=== PATIENT | female | born 1965 | race Caucasian/White ===

== ENCOUNTER 2018-12-05 19:20 | Inpatient (IN) | payer MEDICAID, OTHER ==
[~2018-12-05] VITALS: Ht 175.3 cm; Wt 86.1 kg
[2018-12-05] MEDS ORDERED: MIDAZOLAM HCL 5 MG/ML-1ML VIAL IV ONE (19:30)
--- NOTE | 2018-12-05 19:40 | NUR ---
Respiratory note: RECEIVED PT FROM EMS WITH 8.0 ETT SECURED AT 23CM AT THE LIP. CO2 DETECTOR PLACED INLINE WITH AMBU BAG RECEIVED POSITIVE COLOR CHANGE BILATERAL BS HEARD, CHANGED OUT EMS HOLISTER AND PLACED BITE BLOCK HOLISTER SECURED AGAIN AT 23CM AT THE LIP WITH OUT INCIDENT. DR GARCIA AT BEDSIDE. PLACED PT ON VENT V4, VENT CONNECTED TO RED OUTLET AND O2 SOURCE. AMBU BAG AND MASK AT BEDSIDE. BS ARE COURSE T/O, LAVAGE SXD FOR THIN BROWN/YELLOWISH RETURN SPUTUM SAMPLE OBTAINED AND SENT TO LAB. WILL CONTINUE TO MONITOR Q2H VENT CHECKS.
[2018-12-05] MEDS ORDERED: MIDAZOLAM DRIP 50 mg/50mL 50 ML IV ONE (19:46)
[2018-12-05] MEDS ORDERED: SODIUM CHLORIDE 0.9% 1,000 ML IVB STA (19:47)
[2018-12-05] MEDS ORDERED: NOREPINEPHRINE 8 MG/250ML KIT 250 ML IV ONE (19:59)
[2018-12-05] MEDS ORDERED: SODIUM BICARBONATE 8.4 % INJ 50ML VIAL IV ONE (20:00)
[2018-12-05] MEDS ORDERED: methylPREDNISolone SOD SUCC 125 MG/2 ML VL IV ONE (20:00)
[2018-12-05] MEDS ORDERED: ONDANSETRON HCL 4 MG/2 ML VIAL IV ONE (20:00)
[2018-12-05] MEDS ORDERED: SODIUM CHLORIDE 0.9% 1,000 ML IV ONE (20:00)
[2018-12-05] MEDS: NOREPINEPHRINE 8 MG/250ML KIT 250 ML IV SCH (20:06)
[2018-12-05] MEDS: MIDAZOLAM DRIP 50 mg/50mL 50 ML IV SCH (20:07)
--- NOTE | 2018-12-05 20:20 | NUR ---
Respiratory note: ROUTINE VENT CHECK. JUAQUIN CHOW MADE AWARE PT REMAINS TACHYPNEIC, RN COMMUNICATES SEDATION WILL BE INCREASED. SXD VIA ETT FOR SCANT AMOUNT OF THIN BROWN/BALDWIN SECRETIONS. WILL CONTINUE TO MONITOR Q2H VENT CHECKS.
[2018-12-05 20:21] LABS: Eosinophils # (auto) 0.1 uL; Hematocrit 37.9 % (36.0-46.0); Monocytes # (auto) 0.2 uL
[2018-12-05 20:22] LABS: Basophils # (auto) 0.1 uL; Basophils % (auto) 0.9 % (0.0-2.0); Eosinophils % (auto) 1.9 % (0.0-7.0); Hemoglobin 12.3 g/dL (12.2-16.2); Lymphocytes # (auto) 2.6 uL; Lymphocytes % (auto) 48.6 % (10.0-50.0); Mean Corpuscular Hemoglobin 33.4 pg (28.0-32.0); Mean Corpuscular Hgb Conc. 32.5 g/dL (32.0-36.0); Mean Corpuscular Volume 102.9 fL (80.0-100.0); Monocytes % (auto) 4.4 % (0.0-12.0); Neutrophils # (auto) 2.4 uL; Neutrophils % (auto) 44.2 % (37.0-80.0); Nucleated Red Blood Cells % 0.2 %; Platelet Count (auto) 261 10^3/uL (140-450); Red Blood Cells 3.69 10^6/uL (4.0-5.20); Red Cell Distribution Width 13.9 % (11.8-14.3); White Blood Cell 5.4 10^3/uL (4.4-10.8)
[2018-12-05 20:24] LABS: Acetaminophen < 2.0 ug/mL (10-30); Alanine Aminotransferase 111 U/L (13-56); Albumin 3.1 g/dL (3.4-5.0); Anion Gap 21 (5-15); Aspartate Aminotransferase 406 U/L (15-37); Blood Alcohol < 3.0 mg/dL (0-5); Blood Urea Nitrogen 12 mg/dL (7-18); Calcium 8.6 mg/dL (8.5-10.1); Carbon Dioxide 14 mmol/L (21-32); Chloride 100 mmol/L (98-107); GFR African American 33 mL/min; GFR Non-African American 28 mL/min; Glucose 252 mg/dL (74-106); Magnesium 2.4 mg/dL (1.6-2.6); Salicylate < 1.7 mg/dL (2.8-20.0); Sodium 135 mmol/L (136-145)
[2018-12-05 20:27] LABS: Alkaline Phosphatase 261 U/L (45-117); Bilirubin, Total 0.3 mg/dL (0.2-1.0); Total Protein 6.9 g/dL (6.4-8.2)
[2018-12-05 21:00] LABS: Lactic Acid w/Reflex 7.5 mmol/L (0.4-2.0)
[2018-12-05] MEDS ORDERED: ACETAMINOPHEN 650 mg PER 20 mL UD GT ONE (21:30)
[2018-12-05 21:37] LABS: Alcohol, Urine < 3.0 mg/dL (0-5); Amphetamine Screen, Urine NEGATIVE (NEGATIVE); Barbiturate Scree,Urine NEGATIVE (NEGATIVE); Benzodiazephine Screen, Urine POSITIVE (NEGATIVE); Cannabinoid Screen, Urine NEGATIVE (NEGATIVE); Cocaine Screen, Urine NEGATIVE (NEGATIVE); Opiate Scree,Urine POSITIVE (NEGATIVE); Phencyclidine Screen, Urine NEGATIVE (NEGATIVE)
--- NOTE | 2018-12-05 21:38 | NUR ---
Respiratory note: TITRATED FIO2 TO 50% DUE TO ABG RESULTS. JUAQUIN CHOW MADE AWARE OF VENT CHANGE.
[2018-12-05 21:44] LABS: Urine Bacteria NONE SEEN /hpf (None Seen); Urine Blood 2+ /uL (Negative); Urine Mucus FEW (None Seen); Urine Specific Gravity 1.012 (1.001-1.035); Urine WBC 12 /hpf (0 - 5)
[2018-12-05] MEDS ORDERED: LEVOFLOXACIN 500MG 100 ML IV ONE (22:00)
[2018-12-05] MEDS: PROPOFOL 100 ML IV SCH (23:23)
[2018-12-05 23:40] VITALS: BP 138/87
[2018-12-06] VITALS (98 sets, daily range): BP systolic 60–158; BP diastolic 36–93
[2018-12-06] MEDS ORDERED: LORazepam 2MG/ML-1ML VIAL IV PRN ×2 (00:30→01:15)
[2018-12-06] MEDS ORDERED: ONDANSETRON HCL 4 MG/2 ML VIAL IV PRN (00:30)
[2018-12-06] MEDS ORDERED: LISI10TA6 PO (00:46)
[2018-12-06] MEDS ORDERED: METO25TA62 PO (00:46)
[2018-12-06] MEDS ORDERED: LAM100T PO (00:48)
[2018-12-06] MEDS ORDERED: BUPR-40 PO (00:49)
[2018-12-06] MEDS ORDERED: MECL-87 PO (00:51)
[2018-12-06] MEDS ORDERED: HCTZ25T PO (00:52)
[2018-12-06] MEDS ORDERED: ESLI1TAB3 PO (00:53)
[2018-12-06] MEDS ORDERED: metroNIDAZOLE 500MG/100ML 100 ML IV ONE (01:00)
[2018-12-06] MEDS ORDERED: DEXTROSE (50%) 50ML SYRG IV PRN (01:00)
--- NOTE | 2018-12-06 02:03 | NUR ---
Respiratory note: AT BEDSIDE FOR ROUTINE VENT CHECK. NO CHANGES MADE, ABG OBTAINED AT THIS TIME. JUAQUIN SUAZO COMMUNICATED PT WILL TRANSFER TO ICU BED 110 SOON. WILL CONTINUE TO MONITOR Q2H VENT CHECKS.
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
--- NOTE | 2018-12-06 04:13 | NUR ---
Respiratory note: END OF SHIFT VENT CHECK, NO CHANGES DONE WILL HAVE DAY SHIFT CONTINUE PLAN OF CARE.
[2018-12-06 04:19] LABS: Basophils # (auto) 0 uL; Basophils % (auto) 0.2 % (0.0-2.0); Eosinophils # (auto) 0 uL; Hematocrit 35.2 % (36.0-46.0); Hemoglobin 11.9 g/dL (12.2-16.2); Lymphocytes # (auto) 0.3 uL; Lymphocytes % (auto) 1.8 % (10.0-50.0); Mean Corpuscular Hemoglobin 33.4 pg (28.0-32.0); Mean Corpuscular Hgb Conc. 33.7 g/dL (32.0-36.0); Mean Corpuscular Volume 99.2 fL (80.0-100.0); Monocytes # (auto) 0.5 uL; Monocytes % (auto) 3.3 % (0.0-12.0); Neutrophils # (auto) 14.5 uL; Neutrophils % (auto) 94.7 % (37.0-80.0); Nucleated Red Blood Cells % 0.1 %; Platelet Count (auto) 238 10^3/uL (140-450); Red Blood Cells 3.55 10^6/uL (4.0-5.20); Red Cell Distribution Width 13.4 % (11.8-14.3); White Blood Cell 15.3 10^3/uL (4.4-10.8)
[2018-12-06 04:33] LABS: Anion Gap 13 (5-15); BUN/Creatinine Ratio 13.9; Blood Urea Nitrogen 19 mg/dL (7-18); Calcium 7.6 mg/dL (8.5-10.1); Carbon Dioxide 19 mmol/L (21-32); Chloride 108 mmol/L (98-107); GFR African American 51 mL/min; GFR Non-African American 43 mL/min; Glucose 135 mg/dL (74-106); Potassium 3.5 mmol/L (3.5-5.1); Sodium 140 mmol/L (136-145)
[2018-12-06] MEDS: MIDAZOLAM DRIP 50 mg/50mL 50 ML IV SCH ×6 (04:51→21:34)
[2018-12-06 05:09] LABS: Magnesium 1.8 mg/dL (1.6-2.6)
[2018-12-06 05:14] LABS: Bilirubin, Direct 0.1 mg/dL (0-0.2); Bilirubin, Total 0.3 mg/dL (0.2-1.0); Phosphorus 3.2 mg/dL (2.5-4.90); Total Protein 6.3 g/dL (6.4-8.2)
[2018-12-06 05:20] LABS: INR 0.99 (0.9-1.15); Partial Thromboplastin Time 26.5 sec (23.64-32.05)
[2018-12-06] MEDS: IPRATROPIUM BROM 0.5 MG/2.5ML INH SOL NEB SCH ×3 (05:58→18:23)
[2018-12-06] MEDS: ALBUTEROL SULF 2.5 MG/0.5ML(0.5%) NEB SOLN NEB SCH ×3 (05:58→18:23)
[2018-12-06] MEDS ORDERED: metroNIDAZOLE 500MG/100ML 100 ML IV SCH (06:00)
[2018-12-06] MEDS: metroNIDAZOLE 500MG/100ML 100 ML IV SCH ×3 (06:00→22:40)
[2018-12-06] MEDS: ACCU-CHEK COMFORT CURVE STRIP VI SCH ×3 (06:00→18:43)
[2018-12-06] MEDS: InsuLIN REG 1unit/0.01ml Soln (100units/ml) SC SCH ×3 (06:00→18:00)
--- NOTE | 2018-12-06 07:00 | NUR ---
CDIFF FORM SENT
--- NOTE | 2018-12-06 07:30 | NUR ---
REPORT AND CARE ENDORSED TO JUAQUIN BATISTA
--- NOTE | 2018-12-06 07:30 | NUR ---
OPENING NOTE SHIFT REPORT RECEIVED AND ASSUMED CARE OF PT FROM VAUGHN REZA
[2018-12-06] MEDS: PROPOFOL 100 ML IV SCH ×4 (07:34→22:40)
--- NOTE | 2018-12-06 10:00 | NUR ---
RANULFO AT BEDSIDE
--- NOTE | 2018-12-06 10:10 | NUR ---
DR. SAAB AT BEDSIDE ORDERS RECEIVED Addendum: 12/06/18 at 1143 by CHELE BARR RN RN UPDATED RANULFO ON PT STATUS. VERBALIZES UNDERSTANDING OF PLAN. NO FURTHER QUESTIONS OR CONCERNS AT THIS TIME.
[2018-12-06] MEDS: ENOXAPARIN SOD 40 MG/0.4 ML SYRINGE SC SCH (10:39)
[2018-12-06] MEDS: FAMOTIDINE (10MG/ML) 2ML VL IV SCH (10:39)
[2018-12-06] MEDS ORDERED: VANCOMYCIN PER PHARMACY 0 MG IV SCH (10:45)
--- NOTE | 2018-12-06 10:45 | NUR ---
RECEIVED CALL FROM RADIOLOGY RECOMMENDATION TO ADVANCE ET TUBE 4 CM PER CHEST XRAY RESULTS SHOWING ET TUBE 9.[address] SAAB AND RT NOTIFIED
--- NOTE | 2018-12-06 10:55 | NUR ---
RT AT BEDSIDE FOR ET TUBE ADVANCEMENT. ET TUBE NOW 26CM AT LIP
--- NOTE | 2018-12-06 11:10 | NUR ---
HYDROELECTRIC PLANT MAINTAINER AT BEDSIDE
--- NOTE | 2018-12-06 11:26 | NUR ---
WOUND CARE NOTE: Wound care in to see patient per wound care request regarding low Benson score of 11, intubation status and multi skin integrity issue noted present on admission. Bedside nurse took photograph of patient's multiple skin issue upon admission for reference. Patient is 53 y/o female with admitted due to cardiac arrest s/p CPR. Patient is resting in ICU bed in Rm 110. She's intubated, sedated and mechanically ventilated. Patient appears to be in no pain using Alex Richardson Faces Pain Scale. Skin assessment done with the assistance of patient's nurse, JUAQUIN Munroe. Patient noted with multiple scabbed abrasions to Lt knee, tiny scabbed wound to R anterior forehead, 2x2cm well approximated incision to dorsal R wrist which patient's reported from recent cyst removal. Abrasions and incision are clean and dry, asymptomatic, left open to air. Patient also noted with multiple old ecchymosis to Lt upper arm, Lt lateral abdomen, lateral lower back, hip and thigh. Ecchymosis are intact, clean and dry, left open to air. No pressure injury noted. Repositioned patient for comfort facing her Rt. side, redistributed pressure points with wedges and pillows. Patient tolerated well. JUAQUIN Munroe at bedside. RECOMMENDATION: BID/PRN cleaning and application of Barrier cream to sacral/buttocks as preventative per MD order, Dietary consult , frequent turning and repositioning schedule as condition permits, redistribute pressure points with pillows, elevate heels on pillows, continue monitoring by wound care while patient is mechanically ventilated and Benson score is below 18. Addendum: 12/06/18 at 1426 by Divya Motley RN Amended: Links added.
--- NOTE | 2018-12-06 11:46 | NUR ---
NUTRITION CONSULT/ASSESSMENT NOTES Please refer to link notes of nutrition screen form filed under the intervention section of the plan of care for further details. Est. Needs: 1650 kcal to 2000 kcal (20-25 kcal/kgBW), 80 gms to 96 gms pro (1.0-1.2 gms/kgBW). Will continue to monitor pertinent labs and reassess nutrient need prn Thank you for this consult. Addendum: 12/06/18 at [address] Amended: Links added.
[2018-12-06] MEDS ORDERED: VANCOMYCIN 1GM/250ML 250 ML IV SCH (12:00)
[2018-12-06] MEDS: VANCOMYCIN 1GM/250ML 250 ML IV SCH (12:30)
[2018-12-06] MEDS ORDERED: fentaNYL Drip 2500mCg/250mlNS 250 ML IV ONE (13:07)
[2018-12-06] MEDS: fentaNYL Drip 2500mCg/250mlNS 250 ML IV SCH (14:28)
--- NOTE | 2018-12-06 14:30 | NUR ---
DR. CAN AT BEDSIDE ORDERS RECEIVED
--- NOTE | 2018-12-06 15:50 | NUR ---
STAT EEG COMPLETED AT BEDSIDE. DR CAN AWARE.
[2018-12-06] MEDS ORDERED: PHENYTOIN IV DILANTIN 1,000 MG in SODIUM CHL 0.9% 250 ML IV ONE (16:00)
--- NOTE | 2018-12-06 16:50 | NUR ---
CONSENT SIGNED BY SPOUSE FOR CENTRAL LINE PLACEMENT
[2018-12-06] MEDS ORDERED: TPN PER PHARMACY 0 ML IV SCH (18:15)
[2018-12-06] MEDS: NOREPINEPHRINE 8 MG/250ML KIT 250 ML IV SCH (18:45)
[2018-12-06] MEDS ORDERED: CALCIUM GLUC 4.65meq/50ml D5AE 50 ML IV ONE (19:00)
--- NOTE | 2018-12-06 19:10 | NUR ---
CLOSING NOTE SHIFT REPORT GIVEN AND CARE ENDORSED TO VAUGHN REZA
--- NOTE | 2018-12-06 19:30 | NUR ---
OPENING NOTE: INTUBATED AND SEDATED. NSR, HR 90-100. SBP 90s ON LEVOPHED GTT. 8.0 ETT, 26 AT THE LIP. EVEN AND UNLABORED BREATHING. SpO2 >95% ON CURRENT VENT SETTINGS. COPIOUS AMOUNTS OF THICK CREAMY ORAL SECRETIONS. ABD DISTENDED BUT SOFT. HYPERACTIVE BS. +FLATUS. SMALL AMOUNTS OF LIQUID STOOL, LEAKING AROUND FLEXISEAL. MALODOROUS. NGT TO LIS, THICK BILIOUS OUTPUT. THOMASON PATENT AND INTACT, DRAINING YELLOW URINE. SKIN GROSSLY INTACT, NUMEROUS SCATTERED BRUISES AND SCRATCHES. ABRASION TO LEFT KNEE AND FOREHEAD. HEALED WOUND TO RIGHT WRIST WITH SUTURES INTACT. SEE IV ASSESSMENT FOR IV PLACEMENT. REINFORCED POC. MAINTAINED PATIENT SAFETY: BED LOCKED AND IN THE LOWEST POSITION, FREQUENT VISUAL CHECKS.
[2018-12-06] MEDS ORDERED: DEXTROSE (50%) 50ML SYRG IV SCH (20:00)
[2018-12-06] MEDS: CLINIMIX PER PHARMACY IV NR (20:14)
[2018-12-06] MEDS ORDERED: LEVOFLOXACIN 500MG 100 ML IV SCH ×2 (21:00)
[2018-12-06] MEDS: PHENYTOIN SODIUM 50 MG/ML 2ML VIAL IV SCH (21:33)
[2018-12-06] MEDS: ACETAMINOPHEN 650 mg PER 20 mL UD PO PRN (21:34)
[2018-12-07] VITALS (103 sets, daily range): BP systolic 84–161; BP diastolic 48–105
[2018-12-07] MEDS: ALBUTEROL SULF 2.5 MG/0.5ML(0.5%) NEB SOLN NEB SCH ×4 (00:13→17:56)
[2018-12-07] MEDS: IPRATROPIUM BROM 0.5 MG/2.5ML INH SOL NEB SCH ×4 (00:13→17:56)
[2018-12-07] MEDS: PROPOFOL 100 ML IV SCH ×4 (01:29→19:24)
[2018-12-07] MEDS: MIDAZOLAM DRIP 50 mg/50mL 50 ML IV SCH ×5 (01:31→19:23)
[2018-12-07 04:19] LABS: Eosinophils # (auto) 0.1 uL; Hemoglobin 11.2 g/dL (12.2-16.2)
[2018-12-07 04:22] LABS: Basophils # (auto) 0.1 uL; Basophils % (auto) 0.4 % (0.0-2.0); Eosinophils % (auto) 0.9 % (0.0-7.0); Hematocrit 34.6 % (36.0-46.0); Lymphocytes # (auto) 1.7 uL; Lymphocytes % (auto) 10.6 % (10.0-50.0); Mean Corpuscular Hemoglobin 33.7 pg (28.0-32.0); Mean Corpuscular Hgb Conc. 32.4 g/dL (32.0-36.0); Monocytes # (auto) 1.1 uL; Monocytes % (auto) 6.9 % (0.0-12.0); Neutrophils % (auto) 81.2 % (37.0-80.0); Nucleated Red Blood Cells % 0.1 %; Platelet Count (auto) 202 10^3/uL (140-450); Red Blood Cells 3.32 10^6/uL (4.0-5.20); Red Cell Distribution Width 14.7 % (11.8-14.3)
[2018-12-07 04:31] LABS: Potassium 4.3 mmol/L (3.5-5.1)
[2018-12-07 04:41] LABS: Albumin 2.6 g/dL (3.4-5.0); BUN/Creatinine Ratio 15.6; Bilirubin, Total 0.1 mg/dL (0.2-1.0); Calcium 7.3 mg/dL (8.5-10.1); Magnesium 2.1 mg/dL (1.6-2.6); Phosphorus 2.7 mg/dL (2.5-4.90); Pre Albumin 29.3 mg/dL (20.0-40.0); Total Protein 5.9 g/dL (6.4-8.2)
[2018-12-07] MEDS: InsuLIN REG 1unit/0.01ml Soln (100units/ml) SC SCH ×4 (06:00→18:00)
[2018-12-07] MEDS: PHENYTOIN SODIUM 50 MG/ML 2ML VIAL IV SCH ×3 (06:16→21:35)
[2018-12-07] MEDS: VANCOMYCIN 1GM/250ML 250 ML IV SCH (06:16)
[2018-12-07] MEDS: metroNIDAZOLE 500MG/100ML 100 ML IV SCH ×3 (06:16→21:35)
[2018-12-07] MEDS: ACCU-CHEK COMFORT CURVE STRIP VI SCH ×4 (06:17→18:07)
--- NOTE | 2018-12-07 06:30 | NUR ---
CLOSING NOTE: PATIENT HAS INCREASING ABDOMINAL BREATHING, REQUIRING INCREASED SEDATION. WILL CONT CARE
--- NOTE | 2018-12-07 07:00 | NUR ---
REPORT AND CARE ENDORSED TO JUAQUIN BATISTA
--- NOTE | 2018-12-07 07:10 | NUR ---
OPENING NOTE RECEIVED REPORT AND ASSUMED CARE OF PT FROM VAUGHN REZA
[2018-12-07] MEDS: fentaNYL Drip 2500mCg/250mlNS 250 ML IV SCH (09:17)
[2018-12-07] MEDS: THIAMINE 100mg/ml INJ (200mg/2ml VIAL) IV SCH (12:11)
[2018-12-07] MEDS: ENOXAPARIN SOD 40 MG/0.4 ML SYRINGE SC SCH (12:11)
[2018-12-07] MEDS: FAMOTIDINE (10MG/ML) 2ML VL IV SCH (12:11)
--- NOTE | 2018-12-07 14:45 | NUR ---
DR. FLORES AT BEDSIDE FOR CENTRAL LINE PLACEMENT
--- NOTE | 2018-12-07 15:10 | NUR ---
XRAY FOR CENTRAL LINE CONFIRMED SATISFACTORY POSITION WILL USE CENTRAL LINE
--- NOTE | 2018-12-07 17:00 | NUR ---
D/C'D RIGHT HAND IV DUE TO INFILTRATION. COOL SWELLING AT THE SITE. WILL CONTINUE TO MONITOE
--- NOTE | 2018-12-07 19:00 | NUR ---
DR. CAN AT BEDSIDE UPDATED ON PT STATUS. SPOUSE VERBALIZES UNDERSTANDING OF PLAN. NO FURTHER QUESTIONS OR CONCERNS AT THIS TIME
[2018-12-07] MEDS: CLINIMIX PER PHARMACY IV NR (19:51)
[2018-12-07] MEDS: NOREPINEPHRINE 8 MG/250ML KIT 250 ML IV SCH (19:53)
[2018-12-07] MEDS ORDERED: PPN PER PHARMACY IV NR ×5 (20:00)
--- NOTE | 2018-12-07 20:00 | NUR ---
EXPIRATORY WHEEZE, DESATURATING TO HIGH 80s - PAGED GRAIN MANAGER HOSPITALIST: NOTIFIED OF THE ABOVE AND PATIENT'S STATUS. ORDERS FOR 20 MG LASIX IVP X1 DOSE, AND ALBUTEROL AND ATROVENT MED NEB Q3H PRN. ORDERS READBACK AND VERIFIED.
[2018-12-07] MEDS ORDERED: FUROSEMIDE 20 MG/2 ML VIAL ONE (20:19)
[2018-12-07] MEDS ORDERED: IPRATROPIUM BROM 0.5 MG/2.5ML INH SOL NEB PRN (20:30)
[2018-12-07] MEDS ORDERED: FUROSEMIDE 20 MG/2 ML VIAL IV ONE (20:30)
[2018-12-07] MEDS ORDERED: ALBUTEROL SULF 2.5 MG/0.5ML(0.5%) NEB SOLN NEB PRN (20:30)
--- NOTE | 2018-12-07 20:40 | NUR ---
RT MADE AWARE OF DESATURATION, EXPIRATORY WHEEZE, AND ADDITION OF Q3H PRN A&A.
--- NOTE | 2018-12-07 21:34 | NUR ---
REMAINS WITH EXPIRATORY WHEEZE, SpO2 90-92% - ASKED RT TO ADMINISTER PRN MED NEB
--- NOTE | 2018-12-07 22:00 | NUR ---
TEMP 100.1F ORALLY - PLACED ICE PACKS BILATERAL AXILLA, AND FAN
[2018-12-08] VITALS (108 sets, daily range): BP systolic 68–162; BP diastolic 39–86
--- NOTE | 2018-12-08 | NUR ---
TEMP 99.0F
[2018-12-08] MEDS: VANCOMYCIN 1GM/250ML 250 ML IV SCH ×2 (00:38→18:27)
[2018-12-08] MEDS: InsuLIN REG 1unit/0.01ml Soln (100units/ml) SC SCH ×5 (00:39→23:34)
[2018-12-08] MEDS: ALBUTEROL SULF 2.5 MG/0.5ML(0.5%) NEB SOLN NEB SCH ×4 (00:51→19:03)
[2018-12-08] MEDS: IPRATROPIUM BROM 0.5 MG/2.5ML INH SOL NEB SCH ×4 (00:51→19:03)
[2018-12-08] MEDS: PROPOFOL 100 ML IV SCH ×5 (00:58→21:01)
[2018-12-08] MEDS: MIDAZOLAM DRIP 50 mg/50mL 50 ML IV SCH ×6 (00:59→22:46)
--- NOTE | 2018-12-08 01:47 | NUR ---
HAIR CARE DONE
--- NOTE | 2018-12-08 02:04 | NUR ---
NOTED WITH EPISODE OF TREMOR/CHILLS WHEN TURNED
[2018-12-08] MEDS: NOREPINEPHRINE 8 MG/250ML KIT 250 ML IV SCH (02:30)
[2018-12-08] MEDS: fentaNYL Drip 2500mCg/250mlNS 250 ML IV SCH ×2 (02:30→17:20)
[2018-12-08 03:56] LABS: Basophils # (auto) 0 uL; Basophils % (auto) 0.3 % (0.0-2.0); Eosinophils # (auto) 0.2 uL; Eosinophils % (auto) 2.1 % (0.0-7.0); Hematocrit 28.4 % (36.0-46.0); Hemoglobin 9.5 g/dL (12.2-16.2); Lymphocytes # (auto) 0.9 uL; Lymphocytes % (auto) 7.1 % (10.0-50.0); Mean Corpuscular Hemoglobin 33.6 pg (28.0-32.0); Mean Corpuscular Hgb Conc. 33.4 g/dL (32.0-36.0); Mean Corpuscular Volume 100.6 fL (80.0-100.0); Monocytes # (auto) 0.6 uL; Monocytes % (auto) 4.6 % (0.0-12.0); Neutrophils # (auto) 10.4 uL; Neutrophils % (auto) 85.9 % (37.0-80.0); Platelet Count (auto) 174 10^3/uL (140-450); Red Blood Cells 2.82 10^6/uL (4.0-5.20); Red Cell Distribution Width 13.9 % (11.8-14.3); White Blood Cell 12.1 10^3/uL (4.4-10.8)
[2018-12-08 04:14] LABS: Alanine Aminotransferase 56 U/L (13-56); Albumin 2.3 g/dL (3.4-5.0); Anion Gap 7 (5-15); Aspartate Aminotransferase 66 U/L (15-37); Blood Urea Nitrogen 21 mg/dL (7-18); Calcium 7.6 mg/dL (8.5-10.1); Carbon Dioxide 21 mmol/L (21-32); Chloride 109 mmol/L (98-107); Glucose 136 mg/dL (74-106); Magnesium 1.7 mg/dL (1.6-2.6); Potassium 3.8 mmol/L (3.5-5.1); Sodium 137 mmol/L (136-145)
[2018-12-08 04:19] LABS: Alkaline Phosphatase 127 U/L (45-117); BUN/Creatinine Ratio 17.6; Bilirubin, Total 0.2 mg/dL (0.2-1.0); GFR African American 61 mL/min; GFR Non-African American 50 mL/min; Total Protein 6.1 g/dL (6.4-8.2)
--- NOTE | 2018-12-08 05:00 | NUR ---
BED BATH WITH CHG WIPES, FRANK CARE, THOMASON CARE, ORAL CARE, AND FULL LINEN CHANGE COMPLETED
[2018-12-08] MEDS: metroNIDAZOLE 500MG/100ML 100 ML IV SCH ×3 (06:02→22:46)
[2018-12-08] MEDS: ACCU-CHEK COMFORT CURVE STRIP VI SCH ×5 (06:02→23:36)
[2018-12-08] MEDS: PHENYTOIN SODIUM 50 MG/ML 2ML VIAL IV SCH ×3 (06:02→21:10)
--- NOTE | 2018-12-08 06:05 | NUR ---
PERSISTS WITH TREMOR LIKE MOTION WHEN STIMULATED
--- NOTE | 2018-12-08 07:10 | NUR ---
OPENING NOTE RECEIVED REPORT AND ASSUMED CARE OF PT FROM VAUGHN REZA
--- NOTE | 2018-12-08 07:27 | NUR ---
CARE AND REPORT ENDORSED TO JUAQUIN BATISTA
--- NOTE | 2018-12-08 07:45 | NUR ---
DR. CAN AT BEDSIDE NO NEW ORDERS AT THIS TIME
--- NOTE | 2018-12-08 08:00 | NUR ---
DURING ASSESSMENT PT REPRESENTS WITH BELLY BREATHING AND FINE TREMORS WITH ANY STIMULATION. DR. CAN IS AWARE.
--- NOTE | 2018-12-08 08:10 | NUR ---
PAGED DR. KING REGARDING ABGS
--- NOTE | 2018-12-08 08:50 | NUR ---
RECEIVED CALL FROM DR. KING ORDERS RECEIVED
[2018-12-08] MEDS ORDERED: SODIUM PHOSP 20MEQ(15MMOL) IN NS 100 ML IV ONE (09:00)
--- NOTE | 2018-12-08 09:12 | NUR ---
DR. SAAB AT BEDSIDE UPDATED SPOUSE ON PT STATUS. VERBALIZES UNDERSTANDING AND STATES HE WILL TALK TO FAMILY REGARDING FUTURE PLANS FOR PT. NO FURTHER QUESTIONS OR CONCERNS AT THIS TIME. ORDERS RECEIVED
--- NOTE | 2018-12-08 09:20 | NUR ---
DR Liam KING ARE OF AB RESULTS. VENT CHANGES MADE TO THE FOLLOWING: AC RR 20, VT 550, PEEP5. RN AWARE OF CHANGE. Addendum: 12/08/18 at 0925 by Maricruz Sahu RT AWARE*
[2018-12-08] MEDS: FAMOTIDINE (10MG/ML) 2ML VL IV SCH (09:55)
[2018-12-08] MEDS: THIAMINE 100mg/ml INJ (200mg/2ml VIAL) IV SCH (09:56)
[2018-12-08] MEDS: ENOXAPARIN SOD 40 MG/0.4 ML SYRINGE SC SCH (09:56)
[2018-12-08] MEDS: FUROSEMIDE 20 MG/2 ML VIAL IV SCH (09:56)
[2018-12-08] MEDS: LEVOFLOXACIN 750MG 150 ML IV SCH (09:57)
[2018-12-08] MEDS: FLUCONAZOLE 200MG/100ML 100 ML IV SCH ×2 (09:57→12:19)
--- NOTE | 2018-12-08 10:40 | NUR ---
DR. OLIVEROS AT BEDSIDE ORDERS RECEIVED
--- NOTE | 2018-12-08 11:30 | NUR ---
DR. KING AT BEDSIDE UPDATED FAMILY ON PT STATUS. FAMILY STATES THEY WILL TALK ABOUT POSSIBLE TERMINAL WEAN. NO FURTHER QUESTIONS OR CONCERNS AT THIS TIME. NO NEW ORDERS AT THIS TIME
--- NOTE | 2018-12-08 11:33 | NUR ---
Nutrition consult/Follow-up Notes Wt.: 85.5 kg Pt continues to be intubated sedated with no family by bedside. pt is now initiated on PN support @ 50 ml/hr providing 648 kcals and 60 gm proteins 408 NCP. pt with inadequate PN support as it meets 32-39% kcals and 62-75% proteins Est. Needs: 1650 kcal to 2000 kcal (20-25 kcal/kgBW), 80 gms to 96 gms pro (1.0-1.2 gms/kgBW). Will continue to monitor pertinent labs and reassess nutrient need prn Labs: BUN 21 H, CREAT 1.19 H,,CA 7.6 L, ALB 2.3 L, GLU 136 H, PREALB, TG wnl Skin: Benson scale 12 high risk abrasion on knee per RN doc GI: Pt has no BM reported with 450 ml gastric drainage per operations systems specialist. PES: Altered nutrition related lab values r/t acute/chronic medical condition aeb hyperglycemia, elev. LFTs and mild hypoalbuminemia Increased nutrient needs r/t current/chronic medical condition aeb intubated, sedated, mild hypoalbuminemia, NPO. Will continue to monitor NPO status, PN tolerance, skin status, pertinent labs and weight trend. F/u in 2 to 3 days. Rec.: 1.) Advance PN support to meet > 75% of needs if pt continues to be NPO, 2) If Albumin level continues trending down, consider Prostat 1 pkt BID. 3.) Advance gradually to oral diet when medically appropriate. 4.) Refer to CDE/RD for further nutrition education and weight monitoring upon discharged. 5.) Continue current plan of care.
--- NOTE | 2018-12-08 15:17 | NUR ---
CALL TO [facility] REGARDING POSSIBLE TERMINAL WEAN FOR TOMORROW. SPOKE WITH MAO.
--- NOTE | 2018-12-08 15:26 | NUR ---
[facility] REFERENCE #[id number]
--- NOTE | 2018-12-08 19:20 | NUR ---
CLOSING NOTE SHIFT REPORT GIVEN AND CARE ENDORSED TO VAUGHN REZA
--- NOTE | 2018-12-08 19:30 | NUR ---
OPENING NOTE: INTUBATED AND SEDATED. GROSSLY UNRESPONSIVE, BUT NOTED WITH FINE TREMOR LIKE MOVEMENTS WITH STIMULATION. NSR, HR 80s. SBP 100s ON LEVO GTT. 8.0 ETT 26 AT THE LIP. LS CTA, DIMINISHED TO BASES. NOTED WITH ABDOMINAL BREATHING. EVEN AND UNLABORED BREATHING. SpO2>95% ON CURRENT VENT SETTINGS. ABD SOFT. HYPOACTIVE BS. FLEXISEAL, LIQUID BROWN OUTPUT. NGT, +AIR BOLUS, TO LIS WITH DARK BILIOUS OUTPUT. THOMASON, PATENT, WITH PALE YELLOW URINE. SKIN GROSSLY INTACT, SEE SKIN AND WOUND FLOWSHEET FOR ASSESSMENT. RIGHT SC TLC, CDI, PATENT WITH BLOOD RETURN. REINFORCED POC. MAINTAINED PATIENT SAFETY: BED LOCKED AND IN THE LOWEST POSITION, FREQUENT VISUAL CHECKS. NO FAMILY PRESENT AT THIS TIME. WILL CONT CARE
[2018-12-08] MEDS ORDERED: TPN PER PHARMACY IV NR ×7 (20:00)
--- NOTE | 2018-12-08 21:00 | NUR ---
FAMILY REQUESTING TO SPEND THE NIGHT D/T POSSIBLE TERMINAL WEAN TOMORROW: ADVISED FAMILY TO SPEAK WITH CHARLENE ALANIZ RN. PER HARDEEP ALANIZ FOR PATIENT'S SISTERS TO SPEND THE NIGHT.
[2018-12-08] MEDS: LORazepam 2MG/ML-1ML VIAL IV PRN (21:01)
--- NOTE | 2018-12-08 21:02 | NUR ---
ATTEMPTED SEDATION VACATION - SEIZURE/TREMOR LIKE ACTIVITY; HR 120s, RR 20s SEDATION TURNED OFF AND PATIENT IMMEDIATELY STARTED WITH TREMOR/SEIZURE LIKE BODY MOVEMENTS, CONTINUOUS AND INCREASING IN INTENSITY. RESTARTED ALL SEDATION AND GAVE 2 MG ATIVAN IVP PRN. W
--- NOTE | 2018-12-08 21:10 | NUR ---
CONTINUED WITH SEIZURE/TREMOR LIKE ACTIVITY, NOW DESATURATING - SCHEDULED DILANTIN GIVEN EARLY
[2018-12-09] VITALS (107 sets, daily range): BP systolic 3–141; BP diastolic 2–94
--- NOTE | 2018-12-09 | NUR ---
NO FAMILY AT BEDSIDE SINCE CHANGE OF SHIFT
[2018-12-09] MEDS: NOREPINEPHRINE 8 MG/250ML KIT 250 ML IV SCH (00:07)
[2018-12-09] MEDS: ALBUTEROL SULF 2.5 MG/0.5ML(0.5%) NEB SOLN NEB SCH ×4 (00:21→18:36)
[2018-12-09] MEDS: IPRATROPIUM BROM 0.5 MG/2.5ML INH SOL NEB SCH ×4 (00:21→18:36)
[2018-12-09] MEDS: PROPOFOL 100 ML IV SCH ×5 (01:21→22:46)
[2018-12-09 04:04] LABS: Basophils # (auto) 0 uL; Basophils % (auto) 0.2 % (0.0-2.0); Eosinophils # (auto) 0.2 uL; Eosinophils % (auto) 2.3 % (0.0-7.0); Hematocrit 25.6 % (36.0-46.0); Hemoglobin 8.8 g/dL (12.2-16.2); Lymphocytes # (auto) 0.8 uL; Lymphocytes % (auto) 8.4 % (10.0-50.0); Mean Corpuscular Hemoglobin 34.3 pg (28.0-32.0); Mean Corpuscular Hgb Conc. 34.5 g/dL (32.0-36.0); Mean Corpuscular Volume 99.3 fL (80.0-100.0); Monocytes # (auto) 0.5 uL; Monocytes % (auto) 5.1 % (0.0-12.0); Neutrophils # (auto) 7.9 uL; Nucleated Red Blood Cells % 0.1 %; Platelet Count (auto) 195 10^3/uL (140-450); Red Blood Cells 2.58 10^6/uL (4.0-5.20); Red Cell Distribution Width 14.4 % (11.8-14.3); White Blood Cell 9.4 10^3/uL (4.4-10.8)
[2018-12-09 04:30] LABS: Anion Gap 6 (5-15); BUN/Creatinine Ratio 16.5; Blood Urea Nitrogen 15 mg/dL (7-18); Carbon Dioxide 23 mmol/L (21-32); Chloride 113 mmol/L (98-107); GFR African American 83 mL/min; GFR Non-African American 68 mL/min; Glucose 107 mg/dL (74-106); Magnesium 1.9 mg/dL (1.6-2.6); Potassium 3.1 mmol/L (3.5-5.1); Sodium 142 mmol/L (136-145)
--- NOTE | 2018-12-09 04:30 | NUR ---
[facility] CALLED MECHANICAL PRODUCT ENGINEER FOR UPDATE ON PATIENT'S CONDITION
[2018-12-09 04:35] LABS: Alkaline Phosphatase 122 U/L (45-117); Aspartate Aminotransferase 41 U/L (15-37); Bilirubin, Total 0.1 mg/dL (0.2-1.0); Phosphorus 2.5 mg/dL (2.5-4.90); Total Protein 5.7 g/dL (6.4-8.2)
[2018-12-09 04:58] LABS: Alanine Aminotransferase 46 U/L (13-56)
--- NOTE | 2018-12-09 05:30 | NUR ---
DECREASED FENTANYL FROM 200 TO 175
[2018-12-09] MEDS: VANCOMYCIN 1GM/250ML 250 ML IV SCH ×2 (05:59→17:38)
[2018-12-09] MEDS: metroNIDAZOLE 500MG/100ML 100 ML IV SCH ×3 (05:59→22:00)
[2018-12-09] MEDS: ACCU-CHEK COMFORT CURVE STRIP VI SCH ×3 (05:59→18:17)
[2018-12-09] MEDS: InsuLIN REG 1unit/0.01ml Soln (100units/ml) SC SCH ×3 (05:59→18:20)
[2018-12-09] MEDS: PHENYTOIN SODIUM 50 MG/ML 2ML VIAL IV SCH ×3 (05:59→22:00)
[2018-12-09] MEDS: LORazepam 2MG/ML-1ML VIAL IV PRN ×2 (05:59→10:33)
--- NOTE | 2018-12-09 06:00 | NUR ---
PATIENT STARTING WITH PERSISTENT SEIZURE/TREMOR LIKE MOVEMENT: INCREASED FENTANYL GTT TO MAX RATE WITH NO CHANGE. PATIENT BECOMING TACHYCARDIC, AND STACKING BREATHS. ATIVAN PRN GIVEN.
[2018-12-09] MEDS: fentaNYL Drip 2500mCg/250mlNS 250 ML IV SCH ×2 (06:29→17:29)
--- NOTE | 2018-12-09 07:06 | NUR ---
Respiratory note: RECEIVED PATIENT ON V4 V200 VENT ORALLY INTUBATED WITH AN 8.0 ETT SECURED VIA CYNTHIA AT THE 26CM MARKING AT THE LIP AND MECHANICALLY VENTILATED WITH THE CHARTED SETTINGS. SPO2 97%, LUNG SOUNDS CLEAR T/O, NO SECRETIONS WHEN SUCTIONED. SKIN IS COOL/DRY TO THE TOUCH AND IS INTACT NEAR CYNTHIA SITE. THERE IS A NGT PLACED IN THE LEFT NARE AND SECURED TO THE NOSE, THERE IS A RIGHT SUBCLAVIAN TRIPLE LUMEN CENTRAL LINE IN PLACE AND SECURED. NON PITTING EDEMA NOTED IN BOTH ARMS/HANDS, PITTING EDEMA ALSO NOTED IN BILATERAL LOWER EXTREMITIES. NO NEW CXR TO ASSESS. PATIENT IS UNRESPONSIVE TO BOTH VERBAL/TACTILE STIMULI AND IS SEDATED ON VERSED, PROPOFOL, AND FENTANYL DRIPS. SHE IS RESTING COMFORTABLY AND TOLERATING VENT WELL, NO CHANGES AMDE. VENT PLUGGED INTO RED OUTLET AND ALL ALARMS ARE SET AND AUDIBLE. WILL CONTINUE TO ASSESS PATIENT WELL VENTILATOR FUNCTION. MED-NEB RUN INLINE.
--- NOTE | 2018-12-09 07:30 | NUR ---
ASSESS- PT. LYING IN BED ON VENT SIZE # 8.0 ET, 26 AT THE LIP, AC-20, TV-550, PEEP-5, FIO2-30%. LUNGS CLEAR NIOKS. INSPIRATORY AND EXPIRATORY. PT. HAS HYPOACTIVE GAG/COUGH REFLEX. PUPILS 2 AND SLUGGISH NIKOS. ON VERSED GTT. AT 15 MG./HR., FENTANYL GTT. AT 200 MCG., AND PROPOFOL GTT. AT 50 MCG. NO RESPONSE TO ANY STIMULI. DOES NOT FOLLOW ANY COMMANDS. EYES CLOSED. PT. HAS TREMORS NOTED ALL OVER WITH STIMULI. NGT LT. NARE TO LIS WITH BILE DRAINAGE. ABD. FIRM, ROUND, DISTENDED. BOWEL SOUNDS ALL FOUR QUADRANTS. F/C TO GRAVITY WITH LT. MILLA CLOUDY URINE. RADIAL PULSES STRONG, PALPABLE NIKOS. PEDAL PULSES STRONG, PALPABLE NIKOS. ON LEVOPHED GTT. AT 8 MCG. CAPILLARY REFILL LESS 3 SEC. NIKOS. HEELS AND TOES PURPLE, BLANCHABLE. TLC RT. SUBCLAVIAN INTACT. TPN AT 59 CC/HR. BRUISES ALL OVER BODY. RT. FOREHEAD WITH SCAB.
[2018-12-09] MEDS: MIDAZOLAM DRIP 50 mg/50mL 50 ML IV SCH ×5 (07:36→20:57)
--- NOTE | 2018-12-09 07:38 | NUR ---
REPORT AND CARE ENDORSED TO JUAQUIN HERNANDEZ
--- NOTE | 2018-12-09 07:40 | NUR ---
DR. CAN Provider/Hospitalist at bedside. NEW ORDERS RECEIVED.
--- NOTE | 2018-12-09 08:30 | NUR ---
Family updated on pt status Family of ANABELA BEATTY updated on patient's status and condition. All questions and concerns addressed. verbalized understanding. VISITING AT THE BS.
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
--- NOTE | 2018-12-09 09:05 | NUR ---
K LEVEL 3.1 THIS AM. SPOKE WITH PHARMACIST, WILL ORDER SUPPLEMENTAL KCL RIDER FOR TODAY.
--- NOTE | 2018-12-09 09:30 | NUR ---
[facility] HERE.
--- NOTE | 2018-12-09 09:45 | NUR ---
HOLD P.T. PER RN.
[2018-12-09] MEDS: ENOXAPARIN SOD 40 MG/0.4 ML SYRINGE SC SCH (09:54)
[2018-12-09] MEDS: THIAMINE 100mg/ml INJ (200mg/2ml VIAL) IV SCH (09:54)
[2018-12-09] MEDS: FUROSEMIDE 20 MG/2 ML VIAL IV SCH (09:54)
[2018-12-09] MEDS: FAMOTIDINE (10MG/ML) 2ML VL IV SCH (09:54)
[2018-12-09] MEDS: FLUCONAZOLE 200MG/100ML 100 ML IV SCH ×3 (09:55→11:16)
[2018-12-09] MEDS ORDERED: POTASSIUM PHOSPHATE 44 MEQ in D5W 5% 250 ML IV ONE (10:00)
--- NOTE | 2018-12-09 10:00 | NUR ---
AUGUSTINE, LEAD PRESS OPERATOR Provider/Hospitalist at bedside. GAVE UPDATE ON PT.
--- NOTE | 2018-12-09 10:33 | NUR ---
PT. IS HAVING TREMORS SEEN ALL OVER BODY. HR INCREASED ST TO THE ONE TEENS. PT. IS HAVING RETRACTIVE ABD. BREATHING ON VENT. RR LOW TO MID 20'S, AC-20 ON VENT. MED. PT. WITH ATIVAN 2MG. IVP.
--- NOTE | 2018-12-09 11:30 | NUR ---
FAMILY MEMBERS VISITING AT THE BS.
--- NOTE | 2018-12-09 12:00 | NUR ---
TEMP 102.7 ORALLY AFTER 2ND CHECK. MED. PT. WITH TYLENOL 650 MG. VIA NGT. REMOVED SHEET. PLACED ICE PACKS NIKOS. AXILLA AND GROIN AREA.
[2018-12-09] MEDS: ACETAMINOPHEN 650 mg PER 20 mL UD PO PRN (12:01)
[2018-12-09] MEDS: LEVOFLOXACIN 750MG 150 ML IV SCH (12:01)
--- NOTE | 2018-12-09 12:25 | NUR ---
DR. SAAB Provider/Hospitalist at bedside. GAVE UPDATE ON PT. FAMILY AT BS. NEW ORDERS RECEIVED.
--- NOTE | 2018-12-09 12:30 | NUR ---
DR. SAAB REQUESTING MEDICAL RECORDS FROM PRE[facility]OUS HOSPITALIZATION AT [facility] AND [facility]. SIGNED CONSENT. INTERNAL COMBUSTION ENGINE INSPECTOR FAXED REQUEST TO BOTH HOSPITALS.
--- NOTE | 2018-12-09 12:45 | NUR ---
FAMILY HAVING MEETING WITH [facility].
--- NOTE | 2018-12-09 13:15 | NUR ---
SBP DECREASED UPPER 70'S TO LOW 80'S. TITRATED LEVOPHED GTT. BACK UP TO 8 MCG. MONITORING BP.
--- NOTE | 2018-12-09 13:45 | NUR ---
SBP INCREASED 90'S. CONTINUING TO MONITOR BP.
--- NOTE | 2018-12-09 14:00 | NUR ---
TEMP DECREASED TO 100.4 ORALLY. ICE PACKS REMAIN IN PLACE.
--- NOTE | 2018-12-09 16:24 | NUR ---
Called/paged [facility] FINCH called re: . Waiting for call back. Continue care.
--- NOTE | 2018-12-09 16:25 | NUR ---
returned call [facility] returned call, updated on patient status and reason for call. OK TO ORDER EVERYTHING FOR [facility] NEEDED. WILL PLACE A-LINE TONIGHT OR TOMORROW. Continue care.
--- NOTE | 2018-12-09 16:40 | NUR ---
[facility] PROCESS STARTED FOR PT. FAMILY SIGNED CONSENT WITH [facility] FOR ORGAN DONATION. ALL ORDERS STARTED PER [facility] ORDER SHEET.
--- NOTE | 2018-12-09 17:05 | NUR ---
TECH AT BS FOR ABD. ULTRASOUND. PT. IS NPO.
[2018-12-09 18:57] LABS: Basophils # (auto) 0 uL; Basophils % (auto) 0.1 % (0.0-2.0); Eosinophils # (auto) 0.2 uL; Hematocrit 26.6 % (36.0-46.0); Lymphocytes # (auto) 0.9 uL; Lymphocytes % (auto) 8.7 % (10.0-50.0); Mean Corpuscular Hemoglobin 33.9 pg (28.0-32.0); Mean Corpuscular Hgb Conc. 33.9 g/dL (32.0-36.0); Monocytes # (auto) 0.8 uL; Monocytes % (auto) 8.2 % (0.0-12.0); Neutrophils # (auto) 8.1 uL; Nucleated Red Blood Cells % 0.1 %; Platelet Count (auto) 227 10^3/uL (140-450); Red Blood Cells 2.66 10^6/uL (4.0-5.20); Red Cell Distribution Width 14.2 % (11.8-14.3)
[2018-12-09 19:12] LABS: Magnesium 1.9 mg/dL (1.6-2.6); Potassium 3.6 mmol/L (3.5-5.1)
[2018-12-09 19:19] LABS: BUN/Creatinine Ratio 12.6; Bilirubin, Direct 0.1 mg/dL (0-0.2); Bilirubin, Total 0.2 mg/dL (0.2-1.0); Calcium 8.4 mg/dL (8.5-10.1); Phosphorus 4.1 mg/dL (2.5-4.90)
[2018-12-09 19:20] LABS: INR 0.96 (0.9-1.15); Partial Thromboplastin Time 32.2 sec (23.64-32.05)
--- NOTE | 2018-12-09 19:39 | NUR ---
[facility]ATA FINCH AT [facility] Addendum: 12/09/18 at 1940 by Suzanna Charles RN RN FOR MADDI INSERTION
[2018-12-09 19:43] LABS: Urine Amorphous Crystal FEW /hpf (None Seen); Urine Bacteria FEW /hpf (None Seen); Urine Blood TRACE /uL (Negative); Urine Budding Yeast MODERATE /hpf (None Seen); Urine Mucus FEW (None Seen); Urine Specific Gravity 1.016 (1.001-1.035); Urine WBC 6 /hpf (0 - 5)
[2018-12-09] MEDS ORDERED: TPN PER PHARMACY IV SCH ×7 (20:00)
--- NOTE | 2018-12-09 21:00 | NUR ---
~ 30 mmHg DIFFERENCE BETWEEN MADDI PRESSURES AND NIBP PRESSURES
--- NOTE | 2018-12-09 21:00 | NUR ---
INQUIRED WITH BLOOD BANK ABOUT ABO TYPE STILL ACTIVE, PER BLOOD BANK SHE WILL RUN IT.
--- NOTE | 2018-12-09 21:14 | NUR ---
UNABLE TO COMPLETE SEDATION VACATION AT THIS TIME: PATIENT KNOWN TO SEIZE/TREMORS Addendum: 12/09/18 at 2116 by Suzanna Charles RN RN Amended: Links added.
--- NOTE | 2018-12-09 23:30 | NUR ---
RECEIVED CALL FROM BLOOD BANK, UNABLE TO SEE ORDER FOR ABO TYPE. - PLACED NEW ORDER FOR ABO TYPE - BLOOD SENT AND PATIENT BANDED
--- NOTE | 2018-12-09 23:37 | NUR ---
PER BLOOD BANK, ABO TYPE ONLY ORDER NOT CROSSING OVER, BUT BECAUSE ORDER IS ACTIVE, THEY WILL RUN IT
[2018-12-10] VITALS (105 sets, daily range): BP systolic -5–222; BP diastolic 46–105
[2018-12-10] MEDS: InsuLIN REG 1unit/0.01ml Soln (100units/ml) SC SCH ×4 (00:04→17:42)
[2018-12-10] MEDS: ACCU-CHEK COMFORT CURVE STRIP VI SCH ×4 (00:04→17:42)
[2018-12-10 00:16] LABS: Basophils # (auto) 0 uL; Basophils % (auto) 0.3 % (0.0-2.0); Eosinophils # (auto) 0.2 uL; Eosinophils % (auto) 2.5 % (0.0-7.0); Hematocrit 25.2 % (36.0-46.0); Hemoglobin 8.5 g/dL (12.2-16.2); Lymphocytes # (auto) 1.1 uL; Lymphocytes % (auto) 11.8 % (10.0-50.0); Mean Corpuscular Hemoglobin 33.6 pg (28.0-32.0); Mean Corpuscular Hgb Conc. 33.8 g/dL (32.0-36.0); Mean Corpuscular Volume 99.4 fL (80.0-100.0); Monocytes # (auto) 0.9 uL; Neutrophils # (auto) 7.3 uL; Neutrophils % (auto) 76.4 % (37.0-80.0); Nucleated Red Blood Cells % 0.1 %; Platelet Count (auto) 247 10^3/uL (140-450); Red Blood Cells 2.54 10^6/uL (4.0-5.20); White Blood Cell 9.6 10^3/uL (4.4-10.8)
[2018-12-10 00:22] LABS: Urine Bacteria FEW /hpf (None Seen); Urine Blood TRACE /uL (Negative); Urine Mucus FEW (None Seen); Urine Specific Gravity 1.015 (1.001-1.035); Urine WBC 2 /hpf (0 - 5)
[2018-12-10] MEDS: IPRATROPIUM BROM 0.5 MG/2.5ML INH SOL NEB SCH ×4 (00:25→18:03)
[2018-12-10] MEDS: ALBUTEROL SULF 2.5 MG/0.5ML(0.5%) NEB SOLN NEB SCH ×4 (00:25→18:03)
[2018-12-10 00:33] LABS: INR 0.98 (0.9-1.15)
[2018-12-10 00:36] LABS: Albumin 1.9 g/dL (3.4-5.0); BUN/Creatinine Ratio 15.6; Calcium 8.2 mg/dL (8.5-10.1); Magnesium 1.9 mg/dL (1.6-2.6); Potassium 3.8 mmol/L (3.5-5.1)
--- NOTE | 2018-12-10 00:54 | NUR ---
FIO2 INCREASED TO 50% PER ABG RESULTS
--- NOTE | 2018-12-10 00:55 | NUR ---
SUDDEN DROP IN HR AND A-LINE PRESSURES: HR DOWN TO 50s AND MADDI PRESSURES INTO 40s. MAX'D OUT LEVOPHED TO RAISE BLOOD PRESSURE.
[2018-12-10 00:56] LABS: Bilirubin, Total 0.1 mg/dL (0.2-1.0); Phosphorus 3.7 mg/dL (2.5-4.90); Total Protein 5.1 g/dL (6.4-8.2)
--- NOTE | 2018-12-10 00:57 | NUR ---
MADDI PRESSURES IN THE 200s, HR IN 110s - REDUCED LEVOPHED GTT RATE
[2018-12-10] MEDS: MIDAZOLAM DRIP 50 mg/50mL 50 ML IV SCH ×4 (01:41→20:36)
[2018-12-10] MEDS: PROPOFOL 100 ML IV SCH ×6 (02:55→23:50)
--- NOTE | 2018-12-10 03:00 | NUR ---
BED BATH WITH CHG WIPES, FRANK CARE, THOMASON CARE, ORAL CARE, HAIR CARE, AND FULL LINEN CHANGE COMPLETED
[2018-12-10] MEDS: metroNIDAZOLE 500MG/100ML 100 ML IV SCH ×3 (05:05→22:16)
[2018-12-10] MEDS: fentaNYL Drip 2500mCg/250mlNS 250 ML IV SCH ×2 (05:30→16:26)
[2018-12-10] MEDS: PHENYTOIN SODIUM 50 MG/ML 2ML VIAL IV SCH ×3 (06:15→22:16)
[2018-12-10] MEDS: VANCOMYCIN 1GM/250ML 250 ML IV SCH ×3 (06:17→22:16)
[2018-12-10 06:25] LABS: Urine Bacteria FEW /hpf (None Seen); Urine Blood 2+ /uL (Negative); Urine Specific Gravity 1.011 (1.001-1.035); Urine WBC 31 /hpf (0 - 5)
[2018-12-10 06:29] LABS: Basophils # (auto) 0 uL; Basophils % (auto) 0.3 % (0.0-2.0); Eosinophils # (auto) 0.4 uL; Eosinophils % (auto) 3.3 % (0.0-7.0); Hematocrit 24.6 % (36.0-46.0); Hemoglobin 8.5 g/dL (12.2-16.2); Lymphocytes # (auto) 1.1 uL; Lymphocytes % (auto) 10.2 % (10.0-50.0); Mean Corpuscular Hgb Conc. 34.5 g/dL (32.0-36.0); Mean Corpuscular Volume 98.7 fL (80.0-100.0); Monocytes # (auto) 0.9 uL; Monocytes % (auto) 8.8 % (0.0-12.0); Neutrophils # (auto) 8.2 uL; Neutrophils % (auto) 77.4 % (37.0-80.0); Platelet Count (auto) 267 10^3/uL (140-450); Red Cell Distribution Width 14.2 % (11.8-14.3); White Blood Cell 10.6 10^3/uL (4.4-10.8)
[2018-12-10 06:47] LABS: INR 0.95 (0.9-1.15); Partial Thromboplastin Time 30.2 sec (23.64-32.05); Potassium 3.7 mmol/L (3.5-5.1)
[2018-12-10 06:55] LABS: Albumin 1.9 g/dL (3.4-5.0); BUN/Creatinine Ratio 17.9; Bilirubin, Total 0.1 mg/dL (0.2-1.0); Calcium 8.7 mg/dL (8.5-10.1); Magnesium 2.1 mg/dL (1.6-2.6); Phosphorus 3.6 mg/dL (2.5-4.90); Pre Albumin 14.4 mg/dL (20.0-40.0)
--- NOTE | 2018-12-10 07:23 | NUR ---
REPORT AND CARE ENDORSED TO JUAQUIN HERNANDEZ
--- NOTE | 2018-12-10 07:35 | NUR ---
ASSESS- PT. LYING IN BED ON VENT SIZE # 8.0 ET, 26 AT THE LIP, AC-20, TV-550, PEEP-5, FIO2-50%. LUNGS WITH EXPIRATORY WHEEZE NIKOS. PT. DOES NOT HAVE GAG/COUGH REFLEX AT THIS TIME. PUPILS 2 AND SLUGGISH NIKOS. NO MOVEMENT OF EXTREMITIES SEEN. NO SZ. ACTIVITY NOTED, NO TREMORS SEEN. ON VERSED GTT. AT 15 MG./HR., PROPOFOL GTT. AT 50 MCG., FENTANYL GTT. AT 200 MCG. TLC RT. SUBCLAVIAN INTACT. A-LINE RT. FEMORAL INTACT, ZEROED. ON LEVOPHED GTT. AT 7.5 MCG. ABD. SOFT, DISTENDED. BOWEL SOUNDS ALL FOUR QUADRANTS. NGT LT. NARE INTACT TO LIS WITH BILE DRAINAGE. FLEXISEAL TO GRAVITY WITH SCANT AMOUNT LIQUID STOOL. F/C TO GRAVITY WITH CLEAR YELLOW URINE. TPN AT 59 CC/HR. RT. WRIST WITH HEALED WOUND WITH SUTURE INTACT. LT. KNEE WITH SCAB OPEN TO AIR. RT. SIDE OF FOREHEAD WITH SCAB OPEN TO AIR. NIKOS. THIGHS WITH RASH. NIKOS. HEELS AND TOES PURPLE, BLANCHABLE. HANDS COOL TO TOUCH NIKOS. WITH BRISK CAPILLARY REFILL.
--- NOTE | 2018-12-10 07:50 | NUR ---
NOTIFIED PHARMACIST OF VANCO TROUGH OF 2.8 FROM 6AM DRAW TODAY.
--- NOTE | 2018-12-10 07:55 | NUR ---
DR. CAN Provider/Hospitalist at bedside. GAVE UPDATE ON PT.
--- NOTE | 2018-12-10 08:20 | NUR ---
AT THE BS.
[2018-12-10] MEDS: FUROSEMIDE 20 MG/2 ML VIAL IV SCH (09:30)
[2018-12-10] MEDS: FAMOTIDINE (10MG/ML) 2ML VL IV SCH (09:30)
[2018-12-10] MEDS: THIAMINE 100mg/ml INJ (200mg/2ml VIAL) IV SCH (09:30)
[2018-12-10] MEDS: FLUCONAZOLE 200MG/100ML 100 ML IV SCH ×2 (09:30→10:51)
--- NOTE | 2018-12-10 09:45 | NUR ---
AUGUSTINE COMMERCIAL MARKETING SPECIALIST Provider/Hospitalist at bedside.
[2018-12-10] MEDS: ENOXAPARIN SOD 40 MG/0.4 ML SYRINGE SC SCH (09:56)
--- NOTE | 2018-12-10 10:15 | NUR ---
DR. Liam PANIAGUA Provider/Hospitalist at bedside.
--- NOTE | 2018-12-10 11:25 | NUR ---
DR. RENDON Provider/Hospitalist at bedside. GAVE UPDATE ON PT.
--- NOTE | 2018-12-10 11:25 | NUR ---
Nutrition Follow-up Notes Wt.: 86.1 kg Pt continues to be intubated sedated with propofol @ 25.83 ml.hr providing 682 kcals from fats with no family by bedside. pt currently NPO on PN support @ 59 ml/hr providing 1340 kcals and 80 gm proteins 1020 NCP. pt with adequate PN support as it meets 101-122% kcals and 83-100% proteins Est. Needs: 1650 kcal to 2000 kcal (20-25 kcal/kgBW), 80 gms to 96 gms pro (1.0-1.2 gms/kgBW). Will continue to monitor pertinent labs and reassess nutrient need prn Labs: GLU 174 H, ALB 1.9 L, PREALB 14.4 L Skin: Benson scale 11 high risk abrasion on knee per RN doc GI: Pt has no BM reported with 100 ml gastric drainage per documentation billing clerk. PES: Altered nutrition related lab values r/t acute/chronic medical condition aeb hyperglycemia, elev. LFTs and mild hypoalbuminemia Increased nutrient needs r/t current/chronic medical condition aeb intubated, sedated, mild hypoalbuminemia, NPO. Will continue to monitor NPO status, PN tolerance, skin status, pertinent labs and weight trend. F/u in 2 to 3 days. Rec.: 1.) Advance PN support to meet > 75% of needs if pt continues to be NPO, 2) If Albumin level continues trending down, consider Prostat 1 pkt BID. 3.) Advance gradually to oral diet when medically appropriate. 4.) Refer to CDE/RD for further nutrition education and weight monitoring upon discharged. 5.) Continue current plan of care.
[2018-12-10] MEDS: LEVOFLOXACIN 750MG 150 ML IV SCH (11:54)
[2018-12-10 12:03] LABS: Basophils # (auto) 0 uL; Basophils % (auto) 0.3 % (0.0-2.0); Eosinophils # (auto) 0.3 uL; Eosinophils % (auto) 3.4 % (0.0-7.0); Hematocrit 25.5 % (36.0-46.0); Hemoglobin 8.7 g/dL (12.2-16.2); Lymphocytes # (auto) 1.2 uL; Lymphocytes % (auto) 12.6 % (10.0-50.0); Mean Corpuscular Hemoglobin 33.9 pg (28.0-32.0); Mean Corpuscular Hgb Conc. 34.3 g/dL (32.0-36.0); Mean Corpuscular Volume 98.8 fL (80.0-100.0); Monocytes % (auto) 10.2 % (0.0-12.0); Neutrophils # (auto) 7.1 uL; Neutrophils % (auto) 73.5 % (37.0-80.0); Nucleated Red Blood Cells % 0.1 %; Platelet Count (auto) 282 10^3/uL (140-450); Red Blood Cells 2.58 10^6/uL (4.0-5.20); Red Cell Distribution Width 14.3 % (11.8-14.3); White Blood Cell 9.6 10^3/uL (4.4-10.8)
[2018-12-10 12:16] LABS: Albumin 1.9 g/dL (3.4-5.0); Potassium 3.8 mmol/L (3.5-5.1)
[2018-12-10 12:22] LABS: INR 0.95 (0.9-1.15); Partial Thromboplastin Time 30.5 sec (23.64-32.05)
[2018-12-10 12:23] LABS: Bilirubin, Total 0.2 mg/dL (0.2-1.0); Calcium 8.6 mg/dL (8.5-10.1); Phosphorus 3.9 mg/dL (2.5-4.90); Total Protein 6.2 g/dL (6.4-8.2)
[2018-12-10 12:51] LABS: Urine Bacteria FEW /hpf (None Seen); Urine Blood 2+ /uL (Negative); Urine Mucus FEW (None Seen); Urine WBC 171 /hpf (0 - 5); Urine WBC Clumps PRESENT /hpf (None Seen)
--- NOTE | 2018-12-10 13:30 | NUR ---
DAUGHTER WOULD LIKE TO SPEAK TO SALES PROJECT ADMINISTRATOR. LEFT MESSAGE WITH OLGA. WAITING FOR CALL BACK.
--- NOTE | 2018-12-10 13:45 | NUR ---
PUPILS 2 AND SLUGGISH NIKOS. EYES REMAIN CLOSED. NO SZ. NOTED. NO GAG OR COUGH REFLEX. DOES NOT RESPOND TO ANY TACTILE/PAINFUL STIMULI. NO MOVEMENT OF EXTREMITIES SEEN. ON VERSED GTT. AT 15 MG./HR., PROPOFOL GTT. AT 50 MCG., AND FENTANYL GTT. AT 200 MCG.
--- NOTE | 2018-12-10 14:45 | NUR ---
FAMILY AT THE SPEAKING WITH [facility].
--- NOTE | 2018-12-10 16:10 | NUR ---
OLGA FROM [facility] HERE SPEAKING WITH PT'S. .
--- NOTE | 2018-12-10 17:31 | NUR ---
FAMILY VISITING AT THE .
[2018-12-10 18:10] LABS: Urine Bacteria FEW /hpf (None Seen); Urine Blood Negative /uL (Negative); Urine Specific Gravity 1.021 (1.001-1.035); Urine WBC 1 /hpf (0 - 5)
[2018-12-10 18:21] LABS: Hematocrit 25.7 % (36.0-46.0); Hemoglobin 8.7 g/dL (12.2-16.2); Mean Corpuscular Hemoglobin 33.5 pg (28.0-32.0); Mean Corpuscular Hgb Conc. 33.8 g/dL (32.0-36.0); Platelet Count (auto) 279 10^3/uL (140-450); Red Blood Cells 2.59 10^6/uL (4.0-5.20); Red Cell Distribution Width 14.4 % (11.8-14.3)
[2018-12-10 18:23] LABS: Basophils % (manual) 0 (0.0-2.0); Blast Cells 0; Metamyelocytes % 0; Myelocytes % 0; Promyelocytes % 0; Reactive Lymphocytes 0
[2018-12-10 18:28] LABS: INR 1.06 (0.9-1.15); Partial Thromboplastin Time 34.2 sec (23.64-32.05)
[2018-12-10 18:32] LABS: Albumin 1.9 g/dL (3.4-5.0); Calcium 8.4 mg/dL (8.5-10.1); Magnesium 1.8 mg/dL (1.6-2.6); Potassium 4.1 mmol/L (3.5-5.1)
[2018-12-10 18:36] LABS: BUN/Creatinine Ratio 20.2; Bilirubin, Total 0.2 mg/dL (0.2-1.0); Phosphorus 3.3 mg/dL (2.5-4.90)
[2018-12-10 19:06] LABS: Band Neutrophils % (manual) 2; Eosinophils % (manual) 5 (0-7); Lymphocytes % (manual) 8 (10.0-50.0); Monocytes % (manual) 5 (0-12)
[2018-12-10] MEDS: NOREPINEPHRINE 8 MG/250ML KIT 250 ML IV SCH (19:49)
[2018-12-10] MEDS ORDERED: TPN PER PHARMACY IV NR ×9 (20:00)
--- NOTE | 2018-12-10 20:25 | NUR ---
SEDATION VACATION DIPRIVAN TURNED OFF AT 2004 TO CHECK PT'S NEURO STATUS. PATIENT STARTED TO HAVE DEEP BREATHING 23-28/MINUTES AND HER BP IS INCREASING. DIPRIVAN RESTARTED AT 2024. IT IS A [facility] CASE.
[2018-12-11] VITALS (71 sets, daily range): BP systolic 73–168; BP diastolic 49–105
[2018-12-11 00:19] LABS: Urine WBC None Seen /hpf (0 - 5)
[2018-12-11] MEDS: ACCU-CHEK COMFORT CURVE STRIP VI SCH ×3 (00:25→12:04)
[2018-12-11] MEDS: InsuLIN REG 1unit/0.01ml Soln (100units/ml) SC SCH ×3 (00:25→12:00)
[2018-12-11 00:27] LABS: Mean Corpuscular Hgb Conc. 33.4 g/dL (32.0-36.0)
[2018-12-11] MEDS: IPRATROPIUM BROM 0.5 MG/2.5ML INH SOL NEB SCH ×3 (00:28→11:45)
[2018-12-11] MEDS: ALBUTEROL SULF 2.5 MG/0.5ML(0.5%) NEB SOLN NEB SCH ×3 (00:28→11:45)
[2018-12-11 00:29] LABS: Hematocrit 24.9 % (36.0-46.0); Hemoglobin 8.3 g/dL (12.2-16.2); Mean Corpuscular Hemoglobin 33.2 pg (28.0-32.0); Mean Corpuscular Volume 99.2 fL (80.0-100.0); Platelet Count (auto) 288 10^3/uL (140-450); Red Blood Cells 2.51 10^6/uL (4.0-5.20); Red Cell Distribution Width 14.2 % (11.8-14.3); White Blood Cell 10.6 10^3/uL (4.4-10.8)
[2018-12-11 00:36] LABS: Basophils % (manual) 0 (0.0-2.0); Blast Cells 0; Metamyelocytes % 0; Myelocytes % 0; Promyelocytes % 0; Reactive Lymphocytes 0
[2018-12-11 00:43] LABS: INR 0.96 (0.9-1.15); Partial Thromboplastin Time 31.2 sec (23.64-32.05)
[2018-12-11 00:45] LABS: Urine Bacteria FEW /hpf (None Seen); Urine Blood Negative /uL (Negative); Urine Specific Gravity 1.006 (1.001-1.035)
[2018-12-11 00:47] LABS: Albumin 1.8 g/dL (3.4-5.0); BUN/Creatinine Ratio 18.9; Calcium 8.4 mg/dL (8.5-10.1); Magnesium 1.9 mg/dL (1.6-2.6); Phosphorus 2.8 mg/dL (2.5-4.90)
[2018-12-11 00:48] LABS: Band Neutrophils % (manual) 1; Eosinophils % (manual) 1 (0-7); Lymphocytes % (manual) 16 (10.0-50.0); Monocytes % (manual) 9 (0-12)
[2018-12-11 00:50] LABS: Bilirubin, Total 0.2 mg/dL (0.2-1.0)
[2018-12-11] MEDS: MIDAZOLAM DRIP 50 mg/50mL 50 ML IV SCH ×3 (01:06→11:46)
[2018-12-11] MEDS: PROPOFOL 100 ML IV SCH ×3 (03:40→11:46)
[2018-12-11] MEDS: fentaNYL Drip 2500mCg/250mlNS 250 ML IV SCH (04:38)
--- NOTE | 2018-12-11 05:00 | NUR ---
Patient bathe/linen change Patient given complete chlorhexidine bath. Skin integrity assessed for any changes. Linens changed. Patient repositioned for comfort.
[2018-12-11] MEDS: metroNIDAZOLE 500MG/100ML 100 ML IV SCH (05:34)
[2018-12-11] MEDS: VANCOMYCIN 1GM/250ML 250 ML IV SCH (05:53)
[2018-12-11] MEDS: PHENYTOIN SODIUM 50 MG/ML 2ML VIAL IV SCH (05:58)
--- NOTE | 2018-12-11 06:00 | NUR ---
PATIENT'S AT BEDSIDE.
[2018-12-11 06:45] LABS: Hemoglobin 8.3 g/dL (12.2-16.2); White Blood Cell 8.7 10^3/uL (4.4-10.8)
[2018-12-11 06:50] LABS: Hematocrit 24.4 % (36.0-46.0); Mean Corpuscular Hemoglobin 33.8 pg (28.0-32.0); Mean Corpuscular Volume 99.2 fL (80.0-100.0); Platelet Count (auto) 297 10^3/uL (140-450); Red Blood Cells 2.46 10^6/uL (4.0-5.20); Red Cell Distribution Width 14.1 % (11.8-14.3)
[2018-12-11 07:03] LABS: INR 0.95 (0.9-1.15); Partial Thromboplastin Time 29.6 sec (23.64-32.05)
[2018-12-11 07:06] LABS: Albumin 1.8 g/dL (3.4-5.0); BUN/Creatinine Ratio 23.9; Calcium 8.8 mg/dL (8.5-10.1); Potassium 4.3 mmol/L (3.5-5.1)
[2018-12-11 07:10] LABS: Basophils % (manual) 0 (0.0-2.0); Bilirubin, Total 0.2 mg/dL (0.2-1.0); Blast Cells 0; Eosinophils % (manual) 0 (0-7); Metamyelocytes % 0; Myelocytes % 0; Phosphorus 3.3 mg/dL (2.5-4.90); Promyelocytes % 0; Reactive Lymphocytes 0
[2018-12-11 07:20] LABS: Urine Bacteria FEW /hpf (None Seen); Urine Blood Negative /uL (Negative); Urine WBC 10 /hpf (0 - 5)
--- NOTE | 2018-12-11 07:30 | NUR ---
REPORT REPORT RECEIVED FROM MITZY RNKATYA. BEDSIDE CHECK DONE. PT RESTING QUIETLY IN BED WITH EYES CLOSED, SEDATED WHILE ON THE VENTILATOR.
--- NOTE | 2018-12-11 07:45 | NUR ---
ASSESSMENT PT RESTING IN BED WITH EYES CLOSED. DOES NOT RESPOND TO VERBAL OR PAINFUL STIMULI. SEDATED ON VERSED, DIPRIVAN AND FENTANYL. PUPILS 3 AND FIXED. ON THE VENTILATOR WITH 8 FR ETT/26 AT THE LIP, TV 550, ACC 22, 35% AND PEEP OF 5. LUNGS CLEAR THROUGHOUT. SUCTIONED FOR SMALL AMOUNT OF THIN CREAMY SECRETIONS VIA ETT. TELE SR 82. PALPABLE PULSES TO ALL EXTREMITIES. SCDS TO BLE. ABD SOFT WITH HYPOACTIVE BOWEL SOUNDS. LEFT NARES NGT WITH + PLACEMENT VERIFIED AND TO LIS WITH DARK BILE GREEN FLUID DRAINING. THOMASON CATHETER DRAINING CLEAR YELLOW URINE. FLEXISEAL IN PLACE WITH SCANT DARK BROWN FLUID IN TUBING. IVF TO RDC TLC, SITE BENIGN AND DRESSING CHANGED ON 12/07. TURNED FOR COMFORT TO HER RIGHT SIDE. SKIN CLEAR EXCEPT FOR BLOTCHY RED RASH TO RIGHT UPPER CHEST, RIGHT ABD AND BILATERAL THIGHS. SINGLE STITCH NOTED ON TOP OF RIGHT WRIST. RAILS UP X4 AND SEIZURE PRECAUTIONS IN PLACE. CONTINUE TO MONITOR.
--- NOTE | 2018-12-11 07:45 | NUR ---
PT TEACHING PT UNABLE TO BENEFIT FROM PT TEACHING AT THIS TIME SHE IS SEDATED WHILE ON THE VENTILATOR. Addendum: 12/11/18 at 0912 by Cindy Mora RN Amended: Links added.
[2018-12-11 07:47] LABS: Band Neutrophils % (manual) 12; Lymphocytes % (manual) 15 (10.0-50.0); Monocytes % (manual) 15 (0-12)
--- NOTE | 2018-12-11 08:20 | NUR ---
PT'S IN THE LOBBY TALKING WITH DR CAN.
--- NOTE | 2018-12-11 08:30 | NUR ---
FAMILY PT'S IN TO THE BEDSIDE AND UPDATED ON PT'S CONDITION AND POC FOR TODAY. HE ALSO SPOKE WITH THE COORDINATORS FROM [facility], LAURA.
--- NOTE | 2018-12-11 09:12 | NUR ---
VERSED OFF FOR SEDATION VACATION.
[2018-12-11] MEDS: ENOXAPARIN SOD 40 MG/0.4 ML SYRINGE SC SCH (10:15)
[2018-12-11] MEDS: FAMOTIDINE (10MG/ML) 2ML VL IV SCH (10:15)
[2018-12-11] MEDS: FUROSEMIDE 20 MG/2 ML VIAL IV SCH (10:15)
[2018-12-11] MEDS: LEVOFLOXACIN 750MG 150 ML IV SCH (10:16)
[2018-12-11] MEDS: THIAMINE 100mg/ml INJ (200mg/2ml VIAL) IV SCH (11:51)
[2018-12-11] MEDS: FLUCONAZOLE 200MG/100ML 100 ML IV SCH (11:57)
--- NOTE | 2018-12-11 12:30 | NUR ---
DECREASED LEVOPHED BY 1 MCG/MIN DUE TO ARTERIAL SBP 160'S
[2018-12-11 13:04] LABS: Hematocrit 26.6 % (36.0-46.0); Hemoglobin 9.2 g/dL (12.2-16.2); Red Cell Distribution Width 14.2 % (11.8-14.3); White Blood Cell 10.4 10^3/uL (4.4-10.8)
[2018-12-11 13:05] LABS: Mean Corpuscular Hgb Conc. 34.5 g/dL (32.0-36.0); Mean Corpuscular Volume 98.5 fL (80.0-100.0); Platelet Count (auto) 311 10^3/uL (140-450); Red Blood Cells 2.71 10^6/uL (4.0-5.20)
--- NOTE | 2018-12-11 13:05 | NUR ---
BACK FROM LUNCH AND PT RESTING IN BED WITH EYES CLOSED. REMAINS SEDATED WHILE ON THE VENTILATOR. VSS. PT'S , DAUGHTER, AND SON AT THE BEDSIDE.
[2018-12-11 13:12] LABS: Basophils % (manual) 0 (0.0-2.0); Blast Cells 0; Myelocytes % 0; Promyelocytes % 0; Reactive Lymphocytes 0
[2018-12-11 13:34] LABS: BUN/Creatinine Ratio 23.4; Potassium 4.3 mmol/L (3.5-5.1)
[2018-12-11 13:38] LABS: Bilirubin, Total 0.1 mg/dL (0.2-1.0); Phosphorus 3.1 mg/dL (2.5-4.90); Total Protein 6.6 g/dL (6.4-8.2)
[2018-12-11 13:46] LABS: INR 0.94 (0.9-1.15); Partial Thromboplastin Time 33.7 sec (23.64-32.05)
[2018-12-11 13:54] LABS: Band Neutrophils % (manual) 5; Eosinophils % (manual) 1 (0-7); Lymphocytes % (manual) 14 (10.0-50.0); Metamyelocytes % 1; Monocytes % (manual) 9 (0-12)
[2018-12-11 14:31] LABS: Urine Amorphous Crystal FEW /hpf (None Seen); Urine Bacteria FEW /hpf (None Seen); Urine Blood Negative /uL (Negative); Urine Mucus FEW (None Seen); Urine WBC 4 /hpf (0 - 5)
[2018-12-11] MEDS ORDERED: ATROPINE SULF 1 MG/10ml SYR IV ONE (15:00)
[2018-12-11] MEDS ORDERED: HEPARIN SODIUM (PORCINE) 5000 UNITS/ML 1ML VIAL IV ONE (15:00)
[2018-12-11] MEDS ORDERED: LORazepam 2MG/ML-1ML VIAL IV ONE (15:00)
--- NOTE | 2018-12-11 15:30 | NUR ---
Respiratory note: PLACED PT ON TRANSPORT VENT ON PREVIOUS SETTINGS. TRANSPORTED PT TO O.R. WITH [facility].
--- NOTE | 2018-12-11 15:30 | NUR ---
TRANSPORTED PT TO OR VIA BED WITH PORTABLE FILM SPLICER AND PORTABLE VENTILATOR IN PLACE. PT TRANSFERRED TO OR TABLE AND PLACED ON THEIR FILM SPLICER AND REMAINS ON THE PORTABLE VENTILATOR. [facility] STAFF AND DR RENDON AT THE BEDSIDE.
--- NOTE | 2018-12-11 15:54 | NUR ---
LEVOPHED OFF PER DR RENDON.
--- NOTE | 2018-12-11 15:58 | NUR ---
TPN OFF PER DR RENDON AND HE REMOVED THE NGT.
--- NOTE | 2018-12-11 16:00 | NUR ---
BECKIE AND VERSED OFF PER DR RENDON.
--- NOTE | 2018-12-11 16:20 | NUR ---
PT EXTUBATED BY LOWELL AND DANIELLE RTS, AT THE ORDER OF DR RENDON.
--- NOTE | 2018-12-11 16:20 | NUR ---
Respiratory note: TERMINAL EXTUBATED PATIENT IN O.R.
--- NOTE | 2018-12-11 16:35 | NUR ---
ATIVAN 2 MG IV GIVEN PER DR RENDON. VS: 137-28-81% AND A LINE 174/92 AND CUFF BP 203/104.
--- NOTE | 2018-12-11 16:43 | NUR ---
ANOTHER ATIVAN 2 MG IV GIVEN PER DR RENDON. VS: 136-24-82% ABD A LINE 169/87 AND CUFF 206/100.
[2018-12-11] MEDS ORDERED: MORPHINE SULF INJ 2 MG/ML SYRINGE 1ML IV ONE ×2 (16:55→17:04)
[2018-12-11] MEDS ORDERED: MORPHINE SULFATE 4 MG/ML SYR/VIAL ONE ×2 (16:55→17:13)
--- NOTE | 2018-12-11 16:55 | NUR ---
MEDICATED WITH MORPHINE [address] RENDON.
--- NOTE | 2018-12-11 16:58 | NUR ---
MEDICATED WITH MORPHINE [address] RENDON.
[2018-12-11] MEDS ORDERED: MORPHINE SULFATE 4 MG/ML SYR/VIAL IV ONE ×2 (17:00→17:13)
--- NOTE | 2018-12-11 17:04 | NUR ---
PT GIVEN MORPHINE [address] RENDON. VS: 133-28-80% AND 144/71 A LINE AND 176/98 CUFF BP. CONTINUE TO MONITOR.
--- NOTE | 2018-12-11 17:08 | NUR ---
GIVEN ANOTHER 2 MG IV MORPHINE PER DR RENDON.
--- NOTE | 2018-12-11 17:13 | NUR ---
MORPHINE ORDERED BY DR RENDON BUT WHEN MED PULLED AND DRAWN UP HE CHANGED HIS MIND AND SO MED WAS WASTED.
[2018-12-11] MEDS ORDERED: HYDROmorphone HCL 2 MG/ML VL ONE (17:53)
--- NOTE | 2018-12-11 17:56 | NUR ---
Medicated with morphine 1 mg iv p for discomfort. Family at the bedside and continue to monitor. Addendum: 12/11/18 at 1957 by Cindy Mora RN CLARIFICATION: PT WAS GIVEN DILAUDID NOT MORPHINE
[2018-12-11] MEDS ORDERED: ONDANSETRON HCL 4 MG/2 ML VIAL IV PRN (18:15)
[2018-12-11] MEDS ORDERED: FLEET ENEMA(ADULT) 135 ML PR PRN (18:15)
--- NOTE | 2018-12-11 18:26 | NUR ---
PAGED AND SPOKE WITH DR LYONS TO CLARIFY MD ORDER FOR SQ ATIVAN. HE CHANGED THE PRN ORDER TO ATIVAN 1 MG IM Q 1HR PRN.
--- NOTE | 2018-12-11 19:30 | NUR ---
REPORT GIVEN TO RETREAD TECHNICIAN RN. BEDSIDE CHECK DONE AND PT REPOSITIONED AND PARTIAL LINEN CHANGE DONE. MADE JUAQUIN AYALA, AWARE OF EARLIER DOSE OF 30,000 UNITS HEPARIN GIVEN WHEN PT IN OR AND DISCUSSED POTENTIAL FOR BLEEDING WHEN ARTERIAL LINE DC'D.
--- NOTE | 2018-12-11 19:30 | NUR ---
PT AWAKE, EYES OPEN, PT DOES NOT COMPREHEND VERBAL COMMANDS, NONVERBAL. PT TACHYPNEIC, MODERATE PINK TINGED SECRETIONS, RA O2SAT 79%, COARSE LUNGS SOUNDS BL. HR 140'S ST ON THE MONITOR. RIGHT SUBCLAV TL, SL INTACT AND PATENT. RT FEMORAL ART LINE, INTACT AND PATENT, PLANNED TO BE DC'D. FLEXISEAL AND THOMASON CATHETER DRAINING VIA GRAVITY. BUE PITTING EDEMA. FAMILY AT BEDSIDE, POC DISCUSSED, STATED UNDERSTANDING. SAFETY PRECAUTIONS IN PLACE. WILL CONTINUE TO MONITOR.
[2018-12-11] MEDS ORDERED: TPN PER PHARMACY IV NR ×8 (20:00)
[2018-12-11] MEDS: MORPHINE SULFATE 4 MG/ML SYR/VIAL IV PRN ×2 (20:13→22:47)
--- NOTE | 2018-12-11 21:00 | NUR ---
ART LINE REMOVED, NO ACTIVE BLEEDING AFTER PRESSURE APPLIED, SURELOCK APPLIED. SAFETY PRECAUTIONS IN PLACE. WILL CONTINUE TO MONITOR.
--- NOTE | 2018-12-11 21:10 | NUR ---
PT TRANSFERRED TO RM 240, ALL BELONGINGS TAKEN W/ PT. REPORT GIVEN TO NURSE JUAQUIN MEDINA.
--- NOTE | 2018-12-11 21:25 | NUR ---
ICU patient trans to floor SBAR faxed and confirmed receipt by Claudia. Assumed care of patient ANABELA BEATTY transferred to [facility] via ICU bed. Report received from Amirah REZA. All patient medications and personal belongings transferred with patient to receiving floor. at bedside. Patient resting in bed, oxygen saturation at 79%, per JUAQUIN Macario this is baseline for this patient. Patient care transferred to Maira REZA. Comfort measures to be provided for patient. Bed in lowest locked position, side rails up x 2, call light within reach. Will continue to monitor Q1hr and PRN. NOTE:
--- NOTE | 2018-12-11 22:00 | NUR ---
Patient rounding Suctioned patient. Removed 25ml of think pink secretions. Patient tolerated well. Will continue to monitor and continue care.
--- NOTE | 2018-12-11 23:00 | NUR ---
Received call from [facility] Spoke with Codi. Requested to call her and leave message at her direct line [phone] and report the date, patients TOD and the name of MD. Patient case number is [id number].
--- NOTE | 2018-12-12 | NUR ---
Patient rounding asleep at bedside. Suctioned patient to clear small amount of secretions. [place] and thick in appearance. Patient tolerated well. Will continue to monitor and continue care.
--- NOTE | 2018-12-12 01:00 | NUR ---
Safeguard removal Removed 20ml of air. No bleeding to site, applied gauze and tegaderm, CDI. Patient tolerated well. Will continue to monitor and continue care.
--- NOTE | 2018-12-12 02:00 | NUR ---
Patient rounding asleep at bedside. Suctioned patient to clear small amount of secretions. [place] and thick in appearance. Patient tolerated well. Will continue to monitor and continue care.
--- NOTE | 2018-12-12 04:00 | NUR ---
Patient rounding at bedside. Suctioned patient, cleared small amount of secretions. [place] and thick in appearance. Patient tolerated well. Will continue to monitor and continue care.
[2018-12-12 05:00] VITALS: BP 190/96
[2018-12-12] MEDS ORDERED: VANCOMYCIN 1GM/250ML 250 ML IV SCH (05:00)
--- NOTE | 2018-12-12 06:00 | NUR ---
Patient rounding at bedside. Suctioned patient to clear small amount of secretions. [place] and thick in appearance. Patient tolerated well. Will continue to monitor and continue care.
[2018-12-12 06:26] LABS: Albumin 2.4 g/dL (3.4-5.0); BUN/Creatinine Ratio 28.3; Calcium 9.8 mg/dL (8.5-10.1); Magnesium 2.1 mg/dL (1.6-2.6); Potassium 4.4 mmol/L (3.5-5.1)
[2018-12-12 06:30] LABS: Bilirubin, Total 0.3 mg/dL (0.2-1.0); Phosphorus 3.1 mg/dL (2.5-4.90); Total Protein 7.8 g/dL (6.4-8.2)
--- NOTE | 2018-12-12 06:47 | NUR ---
Closing shift note Patient in bed, awake. at bedside. Patient has been on terminal weaning. Comfort measures are being continued. Suction at bedside, frequent suctioning [id number] needed. Breathing is rapid and labored. Swanson patent and draining dark sumit and clear. Flexiseal intact, no drainage throught shift. Pain medications are to be administered PRN. Will endorse care to dayshift JUAQUIN Magdaleno.
--- NOTE | 2018-12-12 07:24 | NUR ---
Opening Shift Note Assumed care of patient, awake and alert. No S/S of distress/SOB or pain. Instructed on POC and to call for assist PRN, will continue to monitor for changes Q1hr and PRN.
[2018-12-12 08:00] VITALS: BP 212/117
[2018-12-12] MEDS: HYDROmorphone HCL 2 MG/ML VL IV PRN (08:05)
[2018-12-12] MEDS: LORazepam 2MG/ML-1ML VIAL IV PRN ×5 (10:18→22:31)
--- NOTE | 2018-12-12 11:37 | NUR ---
Nutrition Follow-up Notes Wt.: 86.1 kg Pt`s terminally weaned per records. pt is currently NPO with no new diet order. pt is off PN support Est. Needs: 1650 kcal to 2000 kcal (20-25 kcal/kgBW), 80 gms to 96 gms pro (1.0-1.2 gms/kgBW). Will continue to monitor pertinent labs and reassess nutrient need prn Labs: BUN 26 H, GLU 221 H, ALB 2.4 L. Skin: Benson scale 12 high risk abrasion on knee per RN doc GI: Pt has no BM reported with 100 ml gastric drainage per tumblers supervisor. PES: Altered nutrition related lab values r/t acute/chronic medical condition aeb hyperglycemia, elev. LFTs and mild hypoalbuminemia Increased nutrient needs r/t current/chronic medical condition aeb intubated, sedated, mild hypoalbuminemia, NPO. Will continue to monitor NPO status, skin status, pertinent labs and weight trend. F/u in 2 to 3 days. Rec.: 1.) Continue current plan of care.
[2018-12-12 11:49] VITALS: BP 193/109
[2018-12-12] MEDS: MORPHINE SULFATE 4 MG/ML SYR/VIAL IV PRN (11:50)
[2018-12-12] MEDS ORDERED: METOPROLOL TARTRATE 1MG/1ML-5ML VIAL IV ONE ×2 (11:53→12:00)
[2018-12-12] MEDS: HYOSCYAMINE SULF 0.125 MG ODT TAB SL PRN ×2 (12:15→16:33)
[2018-12-12] MEDS: MORPHINE SULF INJ 2 MG/ML SYRINGE 1ML IV PRN ×3 (15:21→20:33)
[2018-12-12 17:22] VITALS: BP 189/118
--- NOTE | 2018-12-12 19:12 | NUR ---
Change of shift given to cnc machinist 2nd shift RN. No distress noted.
--- NOTE | 2018-12-12 19:20 | NUR ---
OPENING NOTE REPORT RECEIVED FROM DAY SHIFT RN PATIENT IS UNRESPONSIVE. PATIENT IS A TERMINAL WEAN/COMFORT CARE PATIENT FROM ICU. PATIENT ON 4L NC, THOMASON AND RECTAL TUBE IN PLACE. TRIPLE LUMEN CENTRAL LINE TO RIGHT UPPER CHEST. TEMP CHECKED AND IS AT 101.7F. PER , "SHE'S HAD A FEVER ALL DAY". RESPIRATIONS AT 55/MIN. HEART RATE IN 140'S AND SUSTAINING. ORAL CARE DONE. THICK WHITE CREAMY SECRETIONS NOTED. PATIENTS AND DAUGHTER ARE AT BEDSIDE. COMFORT CARE DISCUSSED AND MEDICATIONS DISCUSSED WITH FAMILY. FAMILY VERBALIZED UNDERSTANDING. WILL MEDICATE ORDERED FOR COMFORT CARE.
--- NOTE | 2018-12-12 20:00 | NUR ---
PAGED HOSPITALIST RE:PATIENT TEMP OF 101.7F AXILLARY NO MEDICATIONS TO HELP WITH FEVER AWAITING CALL BACK
--- NOTE | 2018-12-12 20:20 | NUR ---
COOLING MEASURES ICE PACKS IN PLACE, ALL BLANKETS REMOVED FAN FACING PATIENT
--- NOTE | 2018-12-12 20:50 | NUR ---
CALL BACK FROM HOSPITALIST SPOKE WITH CHELO NEW ORDER RECEIVED FOR TYLENOL SUPPOSITORY. WILL INPUT ORDER
--- NOTE | 2018-12-12 21:11 | NUR ---
LINDA, AT BEDSIDE REFUSING TYLENOL SUPPOSITORY AT THIS TIME FOR PATIENT AND STATES, "LET'S JUST WAIT A WHILE"
[2018-12-12] MEDS ORDERED: ACETAMINOPHEN 650 MG RECT SUPP PR ONE (21:15)
[2018-12-12 22:00] VITALS: BP 180/111
--- NOTE | 2018-12-12 22:00 | NUR ---
TEMP NOW 100.1F COOLING MEASURES STILL IN PLACE PATIENTS WOULD LIKE TO "HOLD OFF ON THE TYLENOL RIGHT NOW"
[2018-12-13] MEDS: MORPHINE SULF INJ 2 MG/ML SYRINGE 1ML IV PRN ×3 (00:03→06:21)
[2018-12-13] MEDS: LORazepam 2MG/ML-1ML VIAL IV PRN ×6 (01:40→22:49)
--- NOTE | 2018-12-13 03:30 | NUR ---
TEMP 97.9F COOLING MEASURES STOPPED AT THIS TIME
[2018-12-13 05:00] VITALS: BP 132/106
--- NOTE | 2018-12-13 06:46 | NUR ---
CLOSING COMFORT CARE PROVIDED TO PATIENT THROUGHOUT SHIFT. MEDICATIONS GIVEN ORDERED-SEE EMAR. ORAL CARE AND SUCTIONING PROVIDED. THOMASON AND RECTAL TUBE IN PLACE. RR REMAIN IN HIGH 50'S, PULSE IN 130'S. AT BEDSIDE. WILL ENDORSE CARE TO AM SHIFT RN.
[2018-12-13 07:30] VITALS: BP 165/106
--- NOTE | 2018-12-13 08:00 | NUR ---
Opening Shift Note Assumed care of patient, unresponsive. In severe respiratory distress. Provided comfort measures. Patient's at bedside. Will continue to monitor for changes Q1hr and PRN.
--- NOTE | 2018-12-13 09:30 | NUR ---
WOUND CARE NOTE: Weekly reevaluation by wound care team. Patient has been on wound care team skin integrity rounding due to previous intubation and low Benson status. Patient was terminally extubated two days ago and has since then been on comfort measures only. Discussed with bedside RNBryn. Will withhold skin reassessment at this time due to comfort measures.
--- NOTE | 2018-12-13 10:00 | NUR ---
Turned to sides every 2 hours initiated. at the bedside.
[2018-12-13 13:00] VITALS: BP 182/109
--- NOTE | 2018-12-13 13:00 | NUR ---
Temp-99.9 cooling measures administered. Suctioned secretions as needed.
[2018-12-13] MEDS: HYDROmorphone HCL 2 MG/ML VL IV PRN ×3 (13:33→20:47)
[2018-12-13 17:23] VITALS: BP 163/92
--- NOTE | 2018-12-13 19:45 | NUR ---
ASSUMED CARE, PT. UNRESPONSIVE, REPOSITIONED PT. RELATIVE AT BEDSIDE, TO KEEP MONITOR.
[2018-12-13 22:00] VITALS: BP 145/84
--- NOTE | 2018-12-13 22:00 | NUR ---
PT. T- 100.1, COOLING MEASURES APPLIED CONTINOUSLY, BLANKET REMOVED, TO KEEP MONITOR.
--- NOTE | 2018-12-13 23:50 | NUR ---
PT. T- 1001.1, COOLING MEASURES APPLIED CONTINOUSLY, TO KEEP MONITOR.
--- NOTE | 2018-12-14 00:30 | NUR ---
pt. t- 99.7, cooling measures continously, to keep monitor.
[2018-12-14] MEDS: HYDROmorphone HCL 2 MG/ML VL IV PRN ×11 (00:52→22:12)
[2018-12-14 04:30] VITALS: BP 161/125
[2018-12-14] MEDS: LORazepam 2MG/ML-1ML VIAL IV PRN ×9 (04:52→23:37)
--- NOTE | 2018-12-14 06:14 | NUR ---
pt. still unresponsive, realtive at bedside, t- 98.6, to keep monitor.
[2018-12-14 09:19] VITALS: BP 155/113
--- NOTE | 2018-12-14 11:40 | NUR ---
Open Shift Note Received report on patient, lying in bed with eyes slightly open, unresponsive to voice but flinches when touched. Patient has labored shallow breaths. at bedside, discussed comfort measures with him and he verbalized understanding. Bed in lowest locked position, side rails up x2 and call light within reach. Will continue to monitor.
[2018-12-14 13:09] VITALS: BP 174/111
[2018-12-14 17:14] VITALS: BP 162/107
--- NOTE | 2018-12-14 19:03 | NUR ---
Closing Note Patient lying in bed, unresponsive to voice and touch. Patient's eyes slightly open, labored breathing. Bed in lowest locked position, side rails up x2 and call light within reach. Family at bedside.
--- NOTE | 2018-12-14 19:30 | NUR ---
Opening Shift Note Assumed care of patient, unresponsive with eyes closed. Patient on comfort measures only. Family at bedside. Swanson and flexiseal intact. Patient's with RR in the 40s and HR in 120s. Bed locked in lowest position, side rails upx2. Will continue to monitor.
[2018-12-14 21:59] VITALS: BP 152/96
[2018-12-15] MEDS: HYDROmorphone HCL 2 MG/ML VL IV PRN ×12 (00:58→23:36)
[2018-12-15] MEDS: LORazepam 2MG/ML-1ML VIAL IV PRN ×10 (03:51→22:33)
[2018-12-15 04:40] VITALS: BP 156/105
--- NOTE | 2018-12-15 07:15 | NUR ---
Open Shift Note Received report on patient, unresponsive to voice. Patient flinches when legs moved. Patient's eyes slightly open, not reactive to movement. at bedside. Discussed comfort measures, verbalized understanding. Bed in lowest locked position, side rails up x2 and call light within reach. Will continue to monitor.
[2018-12-15 09:09] VITALS: BP 160/116
[2018-12-15 13:00] VITALS: BP 177/111
[2018-12-15 17:15] VITALS: BP 155/104
[2018-12-15 22:00] VITALS: BP 150/99
[2018-12-16] MEDS: LORazepam 2MG/ML-1ML VIAL IV PRN ×13 (00:32→23:15)
[2018-12-16] MEDS: HYDROmorphone HCL 2 MG/ML VL IV PRN ×13 (01:32→23:15)
[2018-12-16 05:08] VITALS: BP 131/83
--- NOTE | 2018-12-16 07:30 | NUR ---
Opening Shift Note Assumed care of patient; patient is unresponsive with eyes open. is at bedside and helping with patient care. No S/S of distress/SOB or pain. PICC line triple lumen in right upper arm is asymptomatic, intact, patent, and saline locked. Swanson catheter patent and draining clear gold colored urine to gravity. Rectal Tube in place and draining liquid dark brown stool. Bed is locked and in lowest position and call light is within reach. Instructed on POC and to call for assist PRN, and verbalized understanding, but patient could not. Patient is on comfort measures only, and will continue to monitor for changes Q1hr and PRN.
--- NOTE | 2018-12-16 09:00 | NUR ---
requested new comfort cart; called Dietary and ordered new cart.
[2018-12-16 09:37] VITALS: BP 155/94
--- NOTE | 2018-12-16 09:39 | NUR ---
Dietary delivered comfort cart to room.
--- NOTE | 2018-12-16 10:30 | NUR ---
Dr. Thompson, Hospitalist, at bedside. New orders received.
--- NOTE | 2018-12-16 11:44 | NUR ---
Received call from KELLE; patient heart rate is 151.
[2018-12-16 13:00] VITALS: BP 159/79
--- NOTE | 2018-12-16 14:32 | NUR ---
re-assessment Per consult hospice. Marianne manager rn case is checking with [facility] manager rn case to see if patient has a hospice benefit. Addendum: 12/16/18 at 1444 by Marcela Guerrero Amended: Links added.
--- NOTE | 2018-12-16 15:16 | NUR ---
Nutrition Follow-up Notes Wt.: 86.1 kg Pt`s terminally weaned and comfort measures only per records. pt is currently NPO with no new diet order. pt is off PN support Est. Needs: 1650 kcal to 2000 kcal (20-25 kcal/kgBW), 80 gms to 96 gms pro (1.0-1.2 gms/kgBW). Will continue to monitor pertinent labs and reassess nutrient need prn Labs: no new labs today 12/12: BUN 26 H, GLU 221 H, ALB 2.4 L. Skin: Benson scale 10 high risk abrasion on knee per RN doc GI: Pt had 2 BM on 12/06 diarr per food safety director. PES: Altered nutrition related lab values r/t acute/chronic medical condition aeb hyperglycemia, elev. LFTs and mild hypoalbuminemia Increased nutrient needs r/t current/chronic medical condition aeb intubated, sedated, mild hypoalbuminemia, NPO. Will continue to monitor NPO status, skin status, pertinent labs and weight trend. F/u in 2 to 3 days. Rec.: 1.) Continue current plan of care.
--- NOTE | 2018-12-16 16:24 | NUR ---
called [facility] to find out what Hospice agency they are contracted with. the closest facility is in [place] called [facility]. ph [phone]. Marcela SS informed
[2018-12-16 17:08] VITALS: BP 157/96
--- NOTE | 2018-12-16 19:30 | NUR ---
Opening Shift Note Assumed care of patient, responding only to discomfort, ie. cleaning of her lips. Respirations in 40s, pt producing foam across mouth with thicker yellow mucus behind foam. Respirations wet but unable to suction. Pupils dilated. in room. Questions answered re. hospice and his involvement in decision making. unaware he had the right to be involved in 's care. Instructed on POC and to call for assist PRN. Pt's awaiting arrival of their children as prev. called them instructing them pt would prob be passing tonight. This RN will continue to monitor for changes Q1hr and PRN. Pt's HR in 130s - 140s. Bed in low position. Call light in reach of .
[2018-12-16] MEDS: HYOSCYAMINE SULF 0.125 MG ODT TAB SL PRN (20:29)
[2018-12-16 22:43] VITALS: BP 146/105
[2018-12-17] MEDS: LORazepam 2MG/ML-1ML VIAL IV PRN ×10 (00:28→14:41)
[2018-12-17] MEDS: HYDROmorphone HCL 2 MG/ML VL IV PRN ×10 (00:30→14:41)
[2018-12-17] MEDS: HYOSCYAMINE SULF 0.125 MG ODT TAB SL PRN ×2 (03:11→08:03)
[2018-12-17 05:09] VITALS: BP 141/97
--- NOTE | 2018-12-17 07:50 | NUR ---
Opening Shift Note Assumed care of patient, not responding verbally. Respirations wet but unable to suction, patient's mouth is tightly closed. in the room. Patient was repositioned safely and comfortably. Mouth cares done. instructed on POC and to call for assist PRN. Will continue to monitor for changes Q1hr and PRN. Pt's HR in 130s - 140s. Bed in low position. Call light in reach of .
[2018-12-17 09:00] VITALS: BP 145/87
--- NOTE | 2018-12-17 09:30 | NUR ---
PT. T- 100.6, COOLING MEASURES APPLIED CONTINUOUSLY. WILL CONTINUE TO MONITOR.
[2018-12-17 13:00] VITALS: BP 143/95
--- NOTE | 2018-12-17 15:30 | NUR ---
PATIENT PROCLAIMED BY STEF SHAFFER.
--- NOTE | 2018-12-17 15:45 | NUR ---
CONTACTED [facility]. SPOKE TO YAMILE. INFORMED HER THAT PATIENT PASS AWAY. YAMILE STATES THAT BODY MAY BE RELEASE APPROPRIATE, PATIENT IS NOT ELIGIBLE FOR DONATION.
--- NOTE | 2018-12-17 15:50 | NUR ---
CONTACTED WELDER/FABRICATOR. STAFF ASKED QUESTIONS AND ANSWERED BY THIS NURSE. STAFF ASKED CALL BACK NUMBER AND STATES THAT THEY WILL GIVE ME A CALL BACK.
--- NOTE | 2018-12-17 16:15 | NUR ---
MORTUARY OF CHOICE SPOKE TO . MORTUARY OF CHOICE IS [facility] [employer] [employer], PH: [phone].
--- NOTE | 2018-12-17 17:55 | NUR ---
AMBULATORY NURSE CALLED BACK SPOKE TO CHRIS GUPTA. CASE NO. [id number]. Addendum: 12/17/18 at 1817 by STEVEN ALBARRAN RN ADDENDUM: CHRIS STATES OKAY TO RELEASE THE BODY.
--- NOTE | 2018-12-17 18:15 | NUR ---
CALLED MORTUARY OF CHOICE: [facility] [employer] [phone] SPOKE TO PAT.
--- NOTE | 2018-12-17 18:55 | NUR ---
POSTMORTEM CARE DONE.
== END 2018-12-17 15:30 | disposition expired | DRG 720 ==
LOC: EDSEX 19:20 → EDBD 19:20 → ER 19:20 → TELE 19:21 → ICU WEST 12-06 02:25 → EAST 12-11 21:16
PROVIDERS: ADMIT Nurse Practitioner Family; ATTEND Internal Medicine
PROC: 5A1955Z Respiratory Ventilation, Greater than 96 Consecutive Hours (ICD-10-PCS; principal; 2018-12-05)
PROC: 0BH17EZ Insertion of Endotracheal Airway into Trachea, Via Natural or Artificial Opening (ICD-10-PCS; 2018-12-05)
PROC: 5A12012 Performance of Cardiac Output, Single, Manual (ICD-10-PCS; 2018-12-05)
PROC: 04HY32Z Insertion of Monitoring Device into Lower Artery, Percutaneous Approach (ICD-10-PCS; 2018-12-09)
DX: A41.9 Sepsis, unspecified organism (principal); I21.9 Acute myocardial infarction, unspecified; I46.9 Cardiac arrest, cause unspecified; J96.01 Acute respiratory failure with hypoxia; E44.0 Moderate protein-calorie malnutrition; E87.1 Hypo-osmolality and hyponatremia; B37.9 Candidiasis, unspecified; G93.1 Anoxic brain damage, not elsewhere classified; G93.41 Metabolic encephalopathy; E11.21 Type 2 diabetes mellitus with diabetic nephropathy; E11.65 Type 2 diabetes mellitus with hyperglycemia; D63.8 Anemia in other chronic diseases classified elsewhere; G40.401 Other generalized epilepsy and epileptic syndromes, not intractable, with status epilepticus; I11.9 Hypertensive heart disease without heart failure; K31.89 Other diseases of stomach and duodenum; F17.210 Nicotine dependence, cigarettes, uncomplicated; F31.9 Bipolar disorder, unspecified; M54.9 Dorsalgia, unspecified; G89.29 Other chronic pain; N39.0 Urinary tract infection, site not specified; K52.9 Noninfective gastroenteritis and colitis, unspecified; T40.601A Poisoning by unspecified narcotics, accidental (unintentional), initial encounter; E87.6 Hypokalemia; N17.9 Acute kidney failure, unspecified; Z51.5 Encounter for palliative care; Z68.28 Body mass index [BMI] 28.0-28.9, adult; Z88.0 Allergy status to penicillin; Z88.8 Allergy status to other drugs, medicaments and biological substances; Z88.1 Allergy status to other antibiotic agents; Z81.8 Family history of other mental and behavioral disorders; Z90.49 Acquired absence of other specified parts of digestive tract; Z91.14 Patient's other noncompliance with medication regimen; Z91.19 Patient's noncompliance with other medical treatment and regimen; Z82.0 Family history of epilepsy and other diseases of the nervous system; Y92.89 Other specified places as the place of occurrence of the external cause
CPT/HCPCS: 36415; 36600; 51702; 70450; 71045; 74176; 76700; 80048; 80053; 80076; 80185; 80202; 80307; 80320; 80329; 81001; 82040; 82140; 82150; 82248; 82805; 82962; 82977; 83036; 83605; 83690; 83735; 83880; 84100; 84443; 84478; 84484; 85007; 85025; 85027; 85610; 85730; 86900; 86901; 87040; 87045; 87070; 87077; 87081; 87086; 87088; 87205; 87493; 87899; 92950; 93005; 93306; 93886; 94002; 94003; 94640; 94761; 95819; 96365; 96366; 96367; 96375; 99291; A4618; G0378; J0610; J1450; J1815; J1956; J2250; J2405; J2704; J3490; J7060

== ENCOUNTER 2018-12-17 15:30 | Inpatient (IN) | payer MEDICAID, OTHER ==
[~2018-12-17 15:30] MED LIST: BUPR-40 PO; ESLI1TAB3 PO; HCTZ25T PO; LAM100T PO; LISI10TA6 PO; MECL-87 PO; METO25TA62 PO
== END 2018-12-17 19:35 | disposition expired | DRG 208 ==
LOC: TELE 15:30
PROC: 5A12012 Performance of Cardiac Output, Single, Manual (ICD-10-PCS; principal; 2018-12-17)
PROC: 5A1935Z Respiratory Ventilation, Less than 24 Consecutive Hours (ICD-10-PCS; 2018-12-17)
PROC: 0BH17EZ Insertion of Endotracheal Airway into Trachea, Via Natural or Artificial Opening (ICD-10-PCS; 2018-12-17)
DX: J96.91 Respiratory failure, unspecified with hypoxia (principal); J69.0 Pneumonitis due to inhalation of food and vomit; G93.1 Anoxic brain damage, not elsewhere classified; E87.2 Acidosis; G40.901 Epilepsy, unspecified, not intractable, with status epilepticus; I46.9 Cardiac arrest, cause unspecified; E87.6 Hypokalemia; B37.9 Candidiasis, unspecified; Z51.5 Encounter for palliative care; Z88.0 Allergy status to penicillin; Z88.1 Allergy status to other antibiotic agents; Z88.8 Allergy status to other drugs, medicaments and biological substances
CPT/HCPCS: 92950; G0378